=== PATIENT | male | born 1950 | race Caucasian/White ===

== ENCOUNTER → 2024-08-12 11:04 | Outpatient (CLI) | payer MEDICARE, SELFPAY | PROVIDERS: PCP Physician Assistant; Referring Provider Physician Assistant; Visit Provider Physician Assistant | DX: S81.802A Unspecified open wound, left lower leg, initial encounter (principal) | CPT/HCPCS: 87070; 87205 ==

== ENCOUNTER 2024-08-12 14:46 | Inpatient (IN) | payer MEDICARE, SELFPAY ==
[2024-08-12] VITALS (7 sets, daily range): BP systolic 124–145; BP diastolic 68–99; PULSE 72–115; RESP 14–18; TEMP 36–36.2; O2SAT 96–98; BMI 36.6
--- NOTE | 2024-08-12 15:49 | PC.NURSE ---
Pt reports long standing ulcerations all over lower extremities up to knees. bilateral lower legs are swollen, red, weeping serous fluid circumferentially. tips of toes are cyanotic, blanchable. toe nails appear fungal in nature. wounds on top of feet appear burned with skin sloughing. pt reports he soaks his feet and legs in salt and laundry detergent. advised to not soak feet in laundry detergent as it has chemicals and that could be why the skin is sloughing and his skin appears burned. multiple infected appears macerations and 2+ pitting edema.
--- NOTE | 2024-08-12 16:09 | ED_ITS ---
HPI - Wound/Laceration General Chief Complaint: Wound/Laceration Stated Complaint: wounds on both feet Time Seen by Provider: 08/12/24 15:05 Source: patient Mode of arrival: Wheelchair History of Present Illness HPI narrative: 74-year-old male with no reported past medical history presents for 2 weeks of redness and wounds on his lower extremities. He has been soaking his wounds 3 times daily in Epsom salt and organic laundry detergent. Has also been using an [id number] topical pain cream which has relieved his pain. He went to a clinic today on [facility] for antibiotics since the wounds are not healing and he was referred to the ER for evaluation. Over the last 3 days the wounds on his right leg have been weeping clear fluid Related Data Home Medications Medication Instructions Recorded Confirmed No Known Home Medications 08/12/24 08/12/24 Allergies Allergy/AdvReac Type Severity Reaction Status Date / Time codeine Allergy Intermediate Verified 08/12/24 14:53 Patient History Social History Smoking Status: Former smoker Smoking Status: Former smoker Exam Initial Vital Signs Initial Vital Signs: Vital Signs Temperature 97.0 F L 08/12/24 14:53 Pulse Rate 111 H 08/12/24 14:53 Respiratory Rate 14 08/12/24 14:53 Blood Pressure 140/99 H 08/12/24 14:53 Pulse Oximetry 98 08/12/24 14:53 Oxygen Delivery Method Room Air 08/12/24 14:53 Const: Awake, alert, no acute distress, appears chronically unwell Cardiac: tachycardia, regular rhythm RESP: unlabored, clear bilaterally, no wheezing GI: Soft, nontender, nondistended MSK: no deformity, full range of motion, pulses detected with doppler Skin: asymmetrical erythema BLE, L>R. Scattered excoriations. LLE with serous weeping from wounds. Toes appear purple, however sensation intact, skin blanches with cap refill <2 seconds in each digit Neuro: AO x3, CN II-XII grossly intact, moves all extremities Course Orders Ordered: ED Orders 08/12/24 15:24 CBC Auto Diff [Complete Blood Count AUTO DIFF] Stat CMP [Comprehensive Metabolic Panel] Stat CRP [C-Reactive Protein Quant] Stat Erythrocyte Sedimentation Rate Stat 08/12/24 16:47 Wound Culture and Gram Stain Stat 08/12/24 17:30 Blood Culture Stat Acetaminophen (Acetaminophen 325 Mg Tablet) 650 mg PO Q6H PRN PRN Reason: Fever/Mild Pain (1-3) Hydrocodone Bitart/Acetaminophen (Hydrocodone/Acet 5/325 Tablet) 2 tab PO Q4H PRN PRN Reason: Pain, Severe (7-10) Heparin Sodium (Porcine) (Heparin 5,000 Unit/Ml Vial) 5,000 unit SUBCUT BID TUSHAR Ceftriaxone Sodium 1,000 mg/ (Sodium Chloride) 100 mls @ 200 mls/hr IV Q24H TUSHAR Naloxone HCl (Naloxone 0.4 Mg/Ml Vial) 0.2 mg IV Q2MIN PRN PRN Reason: Opiate Reversal Ondansetron HCl (Ondansetron 4 Mg/2 Ml Inj) 4 mg IV Q8HR PRN PRN Reason: Nausea And Vomiting Discontinued Medications Ceftriaxone Sodium 2,000 mg/ (Sodium Chloride) 100 mls @ 200 mls/hr IV NOW ONE Stop: 08/12/24 16:10 Last Admin: 08/12/24 17:43 Dose: 200 mls/hr Documented By: SUSY Vancomycin HCl/Dextrose (Vancomycin) 2,000 mg in 400 mls @ 200 mls/hr IV NOW ONE Stop: 08/12/24 18:08 Vital Signs Vital signs: Vital Signs - 8 hr 08/12/24 14:53 08/12/24 15:27 08/12/24 15:30 Temperature 97.0 F L Pulse Rate 111 H 97 H Respiratory Rate 14 Blood Pressure 140/99 H 134/98 H Pulse Oximetry 98 96 Oxygen Delivery Method Room Air 08/12/24 15:30 08/12/24 15:59 Temperature Pulse Rate 74 Respiratory Rate Blood Pressure Pulse Oximetry 96 97 Oxygen Delivery Method MDM - Wound/Laceration Lab Data 08/12/24 15:24 08/12/24 15:24 Labs: Lab Results 08/12/24 Range/Units 15:24 WBC 8.9 (4.5-11.0) X10^3/uL RBC 4.99 (4.5-5.9) X10^6/uL Hgb 14.1 (13.5-17.5) g/dL Hct 44.2 (41-53) % MCV 88.4 (80-100) fL MCH 28.3 (26-34) PG MCHC 32.0 (30-36) % RDW 15.5 H (11.6-14.8) % Plt Count 196 (150-400) X10^3/uL Neut % (Auto) 84.7 H (50-75) % Lymph % (Auto) 6.8 L (25-40) % [place] % (Auto) 3.6 (3-14) % Eos % (Auto) 1.2 L (2-4) % Baso % (Auto) 3.7 H (0-2) % Neut # (Auto) 7500 H (1201-9897) /uL Lymph # (Auto) 600 L (1300-9054) /uL [place] # (Auto) 300 (0-900) /uL Eos # (Auto) 100 (0-450) /uL Baso # (Auto) 300 H (0-100) /uL ESR 8 (0-15) MM/HR Sodium 137 (137-145) mmol/L Potassium 4.1 (3.4-5.1) mmol/L Chloride 108 H (98-107) mmol/L Carbon Dioxide 21 L (22-32) mmol/L BUN 29 H (9-20) mg/dL Creatinine 1.28 H (0.66-1.25) mg/dL Estimated GFR 59 L (>60) mL/min BUN/Creatinine Ratio 22.7 H (6-22) Glucose 111 H (80-110) mg/dL Calcium 9.0 (8.4-10.2) mg/dL Total Bilirubin 0.9 (0.2-1.3) mg/dL AST 36 (17-59) IU/L ALT 24 (<50) IU/L Alkaline Phosphatase 66 (38-126) U/L Total Protein 7.0 (6.3-8.2) g/dL Albumin 3.7 (3.5-5.0) g/dL Globulin 3.3 (1.7-4.1) g/dL Albumin/Globulin Ratio 1.1 (1.0-2.8) MDM Narrative Medical decision making narrative: Two weeks of nonhealing bilateral lower extremity wounds, left greater than right. Patient has scattered excoriations and weeping wounds bilateral lower extremities. Some of patient's skin changes may be explained by the fact that he was soaking his legs in dishwashing detergent. He has extensive skin changes over his feet and toes. Notably his toes almost seemed to be purple in appearance, however they are nontender to palpation, he was able to wiggle his toes, the skin blanches with capillary refill less than 2 seconds bilaterally and in every digit. DP pulses dopplerable. Laboratory work is reviewed, no priors for comparison. Patient was received IV vancomycin and Rocephin. Blood cultures and wound culture sent to lab. Patient admitted for further treatment. Discharge Plan Departure Patient Disposition: Admitted As Inpatient Clinical Impression: Cellulitis of both lower extremities, Open wound of both legs with complication Admit Date/Time: 08/12/24 17:32 Admit Provider: Herrera Murphy
[2024-08-12 16:45] LABS: Add Manual Diff / Slide Review NO; Basophils Absolute Auto 300 /uL (0-100); Basophils Percent Auto 3.7 % (0-2); Eosinophils Absolute Auto 100 /uL (0-450); Eosinophils Percent Auto 1.2 % (2-4); Hematocrit 44.2 % (41-53); Hemoglobin 14.1 g/dL (13.5-17.5); Lymphocytes Absolute Auto 600 /uL (1100-4500); Lymphocytes Percent Auto 6.8 % (25-40); Mean Corpuscular Hemoglobin 28.3 PG (26-34); Mean Corpuscular Volume 88.4 fL (80-100); Monocytes Absolute Auto 300 /uL (0-900); Monocytes Percent Auto 3.6 % (3-14); Neutrophils Absolute Auto 7500 /uL (1500-7000); Neutrophils Percent Auto 84.7 % (50-75); Platelet Count 196 X10^3/uL (150-400); Red Blood Cell Count 4.99 X10^6/uL (4.5-5.9); Red Cell Distribution Width 15.5 % (11.6-14.8); White Blood Cell Count 8.9 X10^3/uL (4.5-11.0)
[2024-08-12 16:48] LABS: Alanine Aminotransferase 24 IU/L (<50); Albumin 3.7 g/dL (3.5-5.0); Albumin Globulin Ratio 1.1 (1.0-2.8); Alkaline Phosphatase 66 U/L (38-126); Aspartate Aminotransferase 36 IU/L (17-59); BUN Creatinine Ratio 22.7 (6-22); Bilirubin Total 0.9 mg/dL (0.2-1.3); Blood Urea Nitrogen 29 mg/dL (9-20); Carbon Dioxide 21 mmol/L (22-32); Chloride 108 mmol/L (98-107); Estimated Glomerular Filt Rate 59 mL/min (>60); Globulin 3.3 g/dL (1.7-4.1); Glucose 111 mg/dL (80-110); HEMOLYSIS 15 (0-50); Potassium 4.1 mmol/L (3.4-5.1); Sodium 137 mmol/L (137-145)
--- NOTE | 2024-08-12 17:06 | PC.NURSE ---
pulses dopplered due to pitting edema and wounds. doppler pulses present.
[2024-08-12] MEDS: cefTRIAXone 2,000 MG in SODIUM CHLORIDE 0.9% 100 ML 200 MG IV (17:43)
[2024-08-12 17:47] LABS: Erythrocyte Sedimentation Rate 8 MM/HR (0-15)
--- NOTE | 2024-08-12 17:59 | P.HP_ITS ---
History of Present Illness History of Present Illness Date Patient Seen: 08/12/24 Time Patient Seen: 18:00 Chief complaint: wounds on both feet Narrative: The patient was a 74-year-old male who denies a past medical history. He lives in [facility] and presents with 2 weeks of progressive redness and wounds in his lower legs. He has been soaking in his wounds 3 times a day and Epsom salts and organic laundry detergent. He was also tried a topical pain cream as well. He was seen in clinic today in [facility] and referred to the ED. Denies fevers, or chills, no nausea, or vomiting. He was no history of cellulitis, denies a history of MRSA. He was lived alone for 35 years, has 7 children. He notes that his hygiene is not what it could be. He does have his own place on [address]. He has been treating his own theories of cellulitis, gout, and foot fungus. He was no history of gout. He has been trying his remedies of salt soaking and laundry detergent for the last 2 weeks and ultimately decided to come for additional help. He denies a history of smoking, or drug use. He does use marijuana very occasionally. He denies any new traumas to the feet or cold or heat exposures. He was a protuberant abdomen and states that this is fairly normal for him. There is a question of some difficulty with urination but no clear history of urinary retention. He does not typically see doctors, or take any medications. [facility] Social History Smoking Status: Former smoker Meds Home Medications and Allergies Home Medications Medication Instructions Recorded Confirmed Type No Known Home Medications 08/12/24 08/12/24 History Allergies Allergy/AdvReac Type Severity Reaction Status Date / Time codeine Allergy Intermediate Verified 08/12/24 14:53 Review of Systems Review of Systems Narrative: All else reviewed and otherwise unremarkable except as noted in the history and physical. Exam Vital Signs (past 8 hours): - 08/12/24 14:53 08/12/24 15:27 08/12/24 15:30 Temperature 97.0 F L Pulse Rate 111 H 97 H Respiratory Rate 14 Blood Pressure 140/99 H 134/98 H Pulse Oximetry 98 96 Oxygen Delivery Method Room Air 08/12/24 15:30 Temperature Pulse Rate 74 Respiratory Rate Blood Pressure Pulse Oximetry 96 Oxygen Delivery Method Oxygen Delivery Method Room Air Narrative Exam Narrative: NAD, alert and oriented, fluent speech, calm. Normocephalic skull, EOMI, anicteric sclera, symmetric pupils. Oropharynx unremarkable, no droop. Neck supple, midline trachea, no adenopathy. Lungs clear, normal rate and effort. Heart regular, no murmur gallop or rub. Abdomen is soft, non distended and non tender. Extremities: Both legs are swollen and red, the left all the way up to just [id number] the right to just above the ankle. There was multiple excoriations and both anterior legs and the patient has multiple cracks in his swollen feet. All of his toes appear to be dusky but he did have Doppler foot pulses in the ED. The patient denies any history of venous insufficiency. He does have delayed cap refill to most of the toes on both feet. Skin is free of rash or lesions. Joints are not swollen or deformed. Judgment appears to be abnormal. Objective Labs 08/12/24 15:24 08/12/24 15:24 Labs: Laboratory Results - last 24 hr 08/12/24 15:24 WBC 8.9 RBC 4.99 Hgb 14.1 Hct 44.2 MCV 88.4 MCH 28.3 MCHC 32.0 RDW 15.5 H Plt Count 196 Neut % (Auto) 84.7 H Lymph % (Auto) 6.8 L [place] % (Auto) 3.6 Eos % (Auto) 1.2 L Baso % (Auto) 3.7 H Neut # (Auto) 7500 H Lymph # (Auto) 600 L [place] # (Auto) 300 Eos # (Auto) 100 Baso # (Auto) 300 H ESR 8 Sodium 137 Potassium 4.1 Chloride 108 H Carbon Dioxide 21 L BUN 29 H Creatinine 1.28 H Estimated GFR 59 L BUN/Creatinine Ratio 22.7 H Glucose 111 H Calcium 9.0 Total Bilirubin 0.9 AST 36 ALT 24 Alkaline Phosphatase 66 Total Protein 7.0 Albumin 3.7 Globulin 3.3 Albumin/Globulin Ratio 1.1 Assessment & Plan Assessment & Plan narrative: 1. Bilateral leg cellulitis, present on admission and active. 2. Possible venous and arterial insufficiency, present on admission and active. Plan: -IV ceftriaxone, Q 24 hours. -MRSA screen, if positive consider additional coverage. -leg arterial and venous studies. -monitor WBC -wound care consult -social insurance specialist consult Anticipate a 2 midnight stay for the severity of his leg cellulitis, supports inpatient status. Full resuscitation Time-Based Coding :: 35 min spent with patient and on the chart (including review of chart, obtaining history, exam, reviewing outside data, placing orders, documenting exam and treatment plan, and counseling patient) on 08/12. Quality MIPS - Admit I confirm the patient?s Advance Care Plan is present, Code status is documented, Surrogate decision maker is in patient?s record [If Yes, STOP here]: Yes MIPS - Meds 'Current medications' to include all prescriptions, [id number] products, herbals, cannabis/cannabidiol products, and vitamin/mineral/dietary (nutritional) supplements. I have utilized all available resources to obtain, update, or review the patient?s current medications. [If Yes, STOP here]: Yes
[2024-08-12] MEDS: VANCOMYCIN 2,000 MG/400 ML PIGGYBACK 200 MG IV (18:39)
[2024-08-12] MEDS: HYDROCODONE/ACET 5/325 TABLET 2 TAB PO (19:08)
--- NOTE | 2024-08-12 20:07 | PC.NURSE ---
Patient was brought up from Er to room 214, oriented to room and call light. VSS. Legs from knees down through feet have multiple open sores, erythemia, edema, weeping, with purlple blanchable toes. Dr. Murphy in to see patient and float RN in to admit patient. Patient conversant, cooperative at this time, but states he does not see medical care normally and takes care of his own problems. Call light and urinal placed within reach. Antibiotics infusing as ordered. This Rn unable to complete wound care due to end of shift, oncoming shift given report and will continue plan of care care. Patients legs are currently elevated on pillows open to air and disposable chucks pads underneath.
[2024-08-12 21:10] LABS: C-Reactive Protein Quant 1.8 mg/dL (<1.0)
[2024-08-12] MEDS: HEPARIN 5,000 UNIT/ML VIAL 5000 UNIT SUBCUT (21:22)
[2024-08-13 06:12] LABS: Add Manual Diff / Slide Review NO; Basophils Absolute Auto 100 /uL (0-100); Basophils Percent Auto 0.9 % (0-2); Eosinophils Absolute Auto 100 /uL (0-450); Eosinophils Percent Auto 0.6 % (2-4); Hematocrit 39.7 % (41-53); Hemoglobin 13.1 g/dL (13.5-17.5); Lymphocytes Absolute Auto 500 /uL (1100-4500); Lymphocytes Percent Auto 4.6 % (25-40); Mean Corpuscular Hemoglobin 28.7 PG (26-34); Mean Corpuscular Volume 87.1 fL (80-100); Monocytes Absolute Auto 800 /uL (0-900); Monocytes Percent Auto 7.7 % (3-14); Neutrophils Absolute Auto 9000 /uL (1500-7000); Neutrophils Percent Auto 86.2 % (50-75); Red Blood Cell Count 4.56 X10^6/uL (4.5-5.9); Red Cell Distribution Width 15.3 % (11.6-14.8); White Blood Cell Count 10.5 X10^3/uL (4.5-11.0)
[2024-08-13 06:20] LABS: BUN Creatinine Ratio 21.6 (6-22); Blood Urea Nitrogen 27 mg/dL (9-20); Calcium 8.8 mg/dL (8.4-10.2); Carbon Dioxide 20 mmol/L (22-32); Chloride 109 mmol/L (98-107); Estimated Glomerular Filt Rate > 60 mL/min (>60); Glucose 105 mg/dL (80-110); HEMOLYSIS < 15 (0-50); Potassium 4.4 mmol/L (3.4-5.1); Sodium 138 mmol/L (137-145)
--- NOTE | 2024-08-13 06:30 | DI.US.S_ITS ---
PROCEDURE: US PERIPH VENOUS LOW EXTREM BI INDICATIONS: EDEMA TECHNIQUE: Real-time imaging, as well as color and pulse Doppler interrogation, were performed of the deep veins of both legs from the inguinal ligament to the popliteal fossa, with documentation of the visualized calf veins. COMPARISON: None. FINDINGS: Diffuse nonspecific subcutaneous tissue edema is noted. No ultrasound evidence of deep vein thrombosis. The posterior tibial and peroneal veins are not evaluated due to soft tissue edema, per notes. Right: The common femoral, femoral, popliteal are normally compressible, and free of intraluminal thrombus. Color and pulse Doppler demonstrate normal phasic intravascular flow. There is normal augmentation response to distal compression maneuver. Left: The common femoral, femoral, popliteal are normally compressible, and free of intraluminal thrombus. Color and pulse Doppler demonstrate normal phasic intravascular flow. There is normal augmentation response to distal compression maneuver. IMPRESSION: Bilateral diffuse nonspecific subcutaneous edema. No ultrasound evidence of of deep venous thrombosis in the bilateral lower extremities. Dictated by: Santino Ramirez M.D. on 08/13/2024 at 7:34 Approved by: Santino Ramirez M.D. on 08/13/2024 at 7:45
[2024-08-13 06:34] LABS: Platelet Count 167 X10^3/uL (150-400)
[2024-08-13] MEDS: HYDROCODONE/ACET 5/325 TABLET 2 TAB PO ×2 (06:56→12:44)
[2024-08-13 07:00] VITALS: BP 123/83; PULSE 78; RESP 16; TEMP 36.6; O2SAT 93
--- NOTE | 2024-08-13 09:00 | DI.US.S_ITS ---
PROCEDURE: US ARTERIAL DUPLEX LE BI INDICATIONS: EDEMA, CELLULITIS TECHNIQUE: Color and pulse Doppler interrogation was performed of both lower extremity arterial systems, with image documentation. COMPARISON: None. FINDINGS: Right lower extremity: Common femoral artery: 59.1 cm/sec, with triphasic flow. Deep femoral artery: 26.7 cm/sec, with biphasic flow. Proximal superficial femoral artery: 74.5 cm/sec, with triphasic flow. Mid superficial femoral artery: 50.9 cm/sec, with triphasic flow. Distal superficial femoral artery: 44.8 cm/sec, with triphasic flow. Popliteal artery: 34.9 cm/sec, with biphasic flow. Posterior tibial artery: 42.9 cm/sec, with biphasic flow. Anterior tibial artery / dorsalis pedis: 41 cm/sec, with biphasic flow. Mcclain-scale imaging description: No definite atherosclerotic disease is seen. Left lower extremity: Common femoral artery: 30.6 cm/sec, with triphasic flow. Deep femoral artery: 24.5 cm/sec, with biphasic flow. Proximal superficial femoral artery: 51.4 cm/sec, with triphasic flow. Mid superficial femoral artery: 64.2 cm/sec, with triphasic flow. Distal superficial femoral artery: 49.4 cm/sec, with triphasic flow. Popliteal artery: 42.2 cm/sec, with biphasic flow. Posterior tibial artery: 80.9 cm/sec, with biphasic flow. Anterior tibial artery / dorsalis pedis: 68.4 cm/sec, with biphasic flow. Mcclain-scale imaging description: No definite atherosclerotic disease is seen. IMPRESSION: 1. Decreased peak systolic velocities are seen in the bilateral femoral and popliteal arteries, which may be related to cardiac disease. 2. Elevated peak systolic velocity within the left tibial arteries, consistent with 1-19% stenosis. Dictated by: Bertin Marshall M.D. on 08/13/2024 at 11:00 Approved by: Bertin Marshall M.D. on 08/13/2024 at 11:06
[2024-08-13] MEDS: HEPARIN 5,000 UNIT/ML VIAL 5000 UNIT SUBCUT (09:52)
[2024-08-13] MEDS: SODIUM CHLORIDE 0.9% FLUSH 10 ML IV (09:53)
--- NOTE | 2024-08-13 12:35 | CM.DANOTE ---
Initial DCP Assessment Visit Note Reviewed EMR and team rounds for status updates. Met with pt at bedside to introduce self and role, pt was found to be resting quietly in bed, was easily able to waken and was able to provide psychosocial background info for this visit. Pt resides alone in his own home on [facility]. He states that he has lived alone for the last 35-years, has 7-children that are not immediately involved, and [place] help if he needs it. Pt shared that he plans on driving himself home, and is not open to any in-home assistance at d/c. Payor: Self Pay PCP: Maribell Duran Pt is a 74 year-old M who presented to the ED last evening with c/o 2-weeks of worsening redness and multiple wounds on his lower legs from his knees down to his feet. He shared that he has been soaking his legs in epsom salts and laundry detergent for the last 2-weeks since it started, however they were not improving. He went to see his PCP at the [facility] in hope of getting antibiotics, however his PCP instead directed him to go to the ED for further evaluation/tx. He was dx with cellulitis in the ED, was started on IV antibiotics and admitted for further tx and wound care. DCP will continue to monitor for any further evolving needs and recommendations for assistance at d/c. Discharge Planning/Care Management CM Discharge Assessment Start: 08/13/24 12:14 Freq: Status: Active Protocol: Document 08/13/24 12:32 DPL (Rec: 08/13/24 12:34 DPL [id number]) Discharge Planning Assessment Assigned Commercial Producer ELIZA Dillon Advance Directives? No History Provided By Patient,Medical Record Has Patient been admitted in last 30 No days? Prior Living Arrangements House Household Members none Type of transporation used prior to Drives own vehicle admit Independent with ADL's Yes Is patient alert and oriented? Yes Comment N/A Caregiver for Another No Comment None identified at this time. Comment Pt has already expressed that he would not be needing any assistance for home d/c. He plans to f/u with his PCP at the [facility]. Barriers to Discharge No Discharge Plan Home Transportation Arrangement Self, he drove himself to the ED. Referrals Initiated None needed Whiteboard Updated in Patient Room with Yes name and ext. # of Commercial Producer Review Status In Process Please Provide Date Initial DC 08/13/24 Assessment Was Performed
[2024-08-13] MEDS: cefTRIAXone 1,000 MG in SODIUM CHLORIDE 0.9% 100 ML 200 MG IV (15:37)
--- NOTE | 2024-08-13 17:20 | PM.PN.1 ---
Subjective Subjective Interval history: 74 M admitted with bilateral cellulitis, improved today but still weak and painful with ambulation. Exam Vital Signs (past 8 hours): Oxygen Delivery Method Room Air Oxygen Flow Rate 0 Narrative Exam Narrative: NAD, alert and oriented, fluent speech, calm. Normocephalic skull, EOMI, anicteric sclera, symmetric pupils. Oropharynx unremarkable, no droop. Neck supple, midline trachea, no adenopathy. Lungs clear, normal rate and effort. Heart regular, no murmur gallop or rub. Abdomen is soft, non distended and non tender. Extremities: Both legs are swollen and red, the left all the way up to just [id number] the right to just above the ankle. There was multiple excoriations and both anterior legs and the patient has multiple cracks in his swollen feet. Joints are not swollen or deformed. Judgment appears to be abnormal. Objective Labs 08/13/24 05:20 08/13/24 05:20 Labs: Laboratory Results - last 24 hr 08/12/24 08/13/24 15:24 05:20 WBC 10.5 RBC 4.56 Hgb 13.1 L Hct 39.7 L MCV 87.1 MCH 28.7 MCHC 33.0 RDW 15.3 H Plt Count 167 Neut % (Auto) 86.2 H Lymph % (Auto) 4.6 L [place] % (Auto) 7.7 Eos % (Auto) 0.6 L Baso % (Auto) 0.9 Neut # (Auto) 9000 H Lymph # (Auto) 500 L [place] # (Auto) 800 Eos # (Auto) 100 Baso # (Auto) 100 ESR 8 Sodium 138 Potassium 4.4 Chloride 109 H Carbon Dioxide 20 L BUN 27 H Creatinine 1.25 Estimated GFR > 60 BUN/Creatinine Ratio 21.6 Glucose 105 Calcium 8.8 C-Reactive Protein 1.8 H PFSH Social History household members: none Smoking Status: Former smoker alcohol intake: current Assessment & Plan Assessment & Plan narrative: 1. Bilateral leg cellulitis, present on admission and active. Plan: -IV ceftriaxone, 1g Q 24 hours -leg arterial and venous studies. Venous was negative for DVT. Arterial studies without any peripheral stenosis. -will have patient ambulate with therapies -continue pain control as needed. -CBC and CMP are stable and without significant abnormality today. -MRSA swab ordered today, add vanco if positive. -wound culture pending, with gram positive and gram negative bacteria. Dispo: Inpatient, possible discharge home vs SNF pending evaluation by PT, likely ready medically in 1-2 days Full resuscitation Time-Based Coding :: [TOTAL MINUTES] spent with patient and on the chart (including review of chart, obtaining history, exam, reviewing outside data, placing orders, documenting exam and treatment plan, and counseling patient) on [DATE].
[2024-08-13 19:00] VITALS: BP 124/95; PULSE 98; RESP 18; TEMP 35.6; O2SAT 92
[2024-08-14 01:48] LABS: MRSA (Nasal) PCR NOT DETECTED (Not Detect)
--- NOTE | 2024-08-14 06:44 | PC.NURSE ---
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 Pt does not feel it would be safe for him to get dicharged to home due to his feet not improving and his pain is greatly increased when attempting to bear weight while walking.RN reassured that the Dr would not discharge until he would be medically cleared/safe to discharge. Pt verbalized understanding and did not have any further questions.
[2024-08-14 07:00] VITALS: BP 134/90; PULSE 98; RESP 22; TEMP 36.6; O2SAT 98
[2024-08-14] MEDS: HEPARIN 5,000 UNIT/ML VIAL 5000 UNIT SUBCUT ×2 (08:35→20:37)
[2024-08-14] MEDS: SODIUM CHLORIDE 0.9% FLUSH 10 ML IV ×2 (08:35→20:37)
[2024-08-14 08:44] LABS: Add Manual Diff / Slide Review NO; Basophils Absolute Auto 100 /uL (0-100); Basophils Percent Auto 1.1 % (0-2); Eosinophils Absolute Auto 100 /uL (0-450); Hemoglobin 13.2 g/dL (13.5-17.5); Lymphocytes Absolute Auto 700 /uL (1100-4500); Lymphocytes Percent Auto 9.7 % (25-40); Mean Corpuscular HGB Conc 32.2 % (30-36); Mean Corpuscular Hemoglobin 28.1 PG (26-34); Mean Corpuscular Volume 87.5 fL (80-100); Monocytes Absolute Auto 700 /uL (0-900); Monocytes Percent Auto 9.7 % (3-14); Neutrophils Absolute Auto 5500 /uL (1500-7000); Neutrophils Percent Auto 77.5 % (50-75); Platelet Count 196 X10^3/uL (150-400); Red Blood Cell Count 4.69 X10^6/uL (4.5-5.9); Red Cell Distribution Width 15.5 % (11.6-14.8); White Blood Cell Count 7.1 X10^3/uL (4.5-11.0)
[2024-08-14 09:14] LABS: BUN Creatinine Ratio 23.9 (6-22); Blood Urea Nitrogen 28 mg/dL (9-20); Calcium 8.7 mg/dL (8.4-10.2); Carbon Dioxide 23 mmol/L (22-32); Chloride 106 mmol/L (98-107); Estimated Glomerular Filt Rate > 60 mL/min (>60); Glucose 96 mg/dL (80-110); HEMOLYSIS < 15 (0-50); Potassium 4.4 mmol/L (3.4-5.1); Sodium 135 mmol/L (137-145)
--- NOTE | 2024-08-14 10:44 | CM.DPC ---
DCP Cont. Reviewed EMR and team rounds for status updates. Pt's wound was bleeding this am while working with PT. Per Hospitalist, he is ordering wound care and pt's wounds will be wrapped in order to be able to work with therapies. Likely 1-2 more days before stable for d/c home.
--- NOTE | 2024-08-14 11:04 | PT.IIE ---
Current Diagnoses Cellulitis of right lower limb (08/12/24) Physical Therapy Inpatient Evaluation/Re-Eval M1 PT/OT-IP Prior Functional Status Start: 08/14/24 08:04 Freq: NEEDED Status: Active Protocol: Document 08/14/24 09:13 MB (Rec: 08/14/24 11:03 MB [id number]) Medical Review Prior Functional Status Medical History Reviewed Yes Communication Unsure baseline diet and pt is able to communicate needs Mobility and Gait Pt reports he only mobilized as needed and was mostly sedentary. He soaked his feet until they were pink each morning. Pt reports no indoor tub or shower and he could bathe if he heated up water on the stove. Activities of Daily Living and IADL's Pt states he drove into town occ Social History Household Members none Living Arrangements House Number of Stairs To Enter/Railing? It is unclear what the home set-up is. Pt states he does not have AD, unclear about steps on eval Home Environment Standard Height Toilet Additional Social History Comment Not working and pt states he sleeps in a flat bed M2 PT-IP Current Condition Start: 08/14/24 08:04 Freq: NEEDED Status: Active Protocol: Document 08/14/24 09:13 MB (Rec: 08/14/24 11:03 MB [id number]) Physical Therapy Current Condition Current Condition Evaluation Date 08/14/24 Treatment Diagnosis B LE cellulitis M3 PT-IP Subjective Start: 08/14/24 08:04 Freq: NEEDED Status: Active Protocol: Document 08/14/24 09:13 MB (Rec: 08/14/24 11:03 MB [id number]) Subjective Physical Therapy Visit Type Type Initial Evaluation Visit Start Time 09:13 Visit Stop Time 09:30 Number of DINKEY MECHANIC Visits 0 Physical Therapy Visit Comments Patient Comments Pt is somewhat apprehensive about d/c. He reports he has some stuff going on at home but he does not state more about this with PT. He does not appear to have good awareness about self-care, wound care or mobility. Therapy Pain Assessment Pain When Pain Assessed During Mobility Pain Present Pain Present Pain Reported Location bilateral feet Intensity 9 Scale Used Numeric (0 - 10) M4 PT-IP Mobility and Gait Start: 08/14/24 08:04 Freq: NEEDED Status: Active Protocol: Document 08/14/24 09:13 MB (Rec: 08/14/24 11:03 [id number]) PT-Bed Mobility Assessment Rolling Level of Assist Standby Assistance,1 Person Assistance Supine to Sit Supine to Sit Standby Assistance,1 Person Assistance,Head of Bed Elevated,Bedrails Sit to Supine Sit to Supine Standby Assistance,1 Person Assistance,Head of Bed Elevated,Bedrails Scooting Scooting to Edge of Bed Standby Assistance PT-Transfer Assessment Comments Mobility Comments Since legs not dressed and socks cannot be donned safely without damaging remaining skin integrity, PT places clean bed pad on floor to try to stand and walker nearby, gait belt and assistance. Pt cannot stand full upright and his left anterior ankle spurts out blood with attempted WB through foot and pain is 9/10 and so returned to supine Gait Assessment Comments Gait Comments Not appropriate given pain and no dressings on legs PT-Balance Assessment Sitting Balance and Reactions Static Sitting Balance Ability Good Dynamic Sitting Balance Ability Fair Standing Balance and Reactions Static Standing Balance Ability Poor Dynamic Standing Balance Ability Poor M5 PT-IP Objective Assessments Start: 08/14/24 08:04 Freq: NEEDED Status: Active Protocol: Document 08/14/24 09:13 MB (Rec: 08/14/24 11:03 [id number]) Orientation Orientation/Cognition Level of Alertness Alert Orientation Name,Age,Birthday,Month,Year, Day of Week,Place,Situation Language Function Ability No Deficits Noted Safety Awareness Decreased Safety Awareness Comments Pt answers most questions but does not relay what is concerning him about home Gross Range of Motion Upper Extremity ROM Assessment Within Functional Limits Lower Extremity ROM Assessment Bilaterally Impaired Strength Comments Strength Comments No formal ROM or MMT LEs given skin issues/cellulitis, bleeding today Coordination Assessment Gross Coordination Gross Coordination Impaired Assessment Coordination Comments Moves legs together and in gross movements d/t pain, edema, and skin breakdown Sensation Assessment Comments Sensation Comments NT M6 PT-IP Treatment Start: 08/14/24 08:04 Freq: NEEDED Status: Active Protocol: Document 08/14/24 09:13 MB (Rec: 08/14/24 11:03 [id number]) Physical Therapy Treatment Education Education Provided Safety M7 PT-IP Assessment and Plan Start: 08/14/24 08:04 Freq: NEEDED Status: Active Protocol: Document 08/14/24 09:13 MB (Rec: 08/14/24 11:03 [id number]) PT Summary Assessment and Plan Potential Rehabilitation Potential Fair Status of Condition at Evaluation Unstable Summary Impairments Pain,ROM,Strength,Balance, Coordination,Sensation,Bed Mobility,Transfers,Gait, Activity Tolerance Progress Towards Goals Slow Progress due to Pain,Slow Progress - Other Assessment Summary Pt is a 74 y/o male presenting with B LE cellulitis. His legs are not dressed in bed and they have many areas of skin breakdown, erythema and edema. Pt has no pain with legs elevated in bed and pain increases to 9/10 with resting feet on floor and he has blood spurting out of anterior left ankle with attempted STS . He has imbalance, pain and weakness and he asks to stop PT. PT cannot don hospital socks for safety d/t poor skin integrity. LEs will need to be dressed before he can wear shoes or socks or mobilize well with PT given risk of infection, fall risk, further skin breakdown and overall biohazard safety for hospital and staff. Pt does not appear to have support at home on [place] and medical access is limited. He does not appear to have good insight to skin care, hygiene or wound care management and he does not have access to shower or tub in the home. He may be more appropriate for SNF at d/c for skilled therapies and nsg wound care. Goals Bed Mobility Goal Independent Transfer Goal Standby Assistance,Front Wheeled Walker Gait Goal Standby Assistance,Front Wheel Walker Gait Distance 100 Other Goals Pt pt ends up having steps at home, will have a goal to ascend and descend steps with appropriate rail and LRAD with mod I. Days to Meet Goals 10 Frequency of Treatment Frequency Of Treatment Once a Day Treatment Plan Physical Therapy Treatment Plan Bed Mobility Training,Transfer Training,Gait Training, Therapeutic Exercise,Balance Retraining,Discharge Planning Weight Bearing Status Allowed Weight Bearing Amount (enter % No limitations in chart or #) (%) Recommendations To Nursing Amount of Assist Needed Mechanical Lift Discharge Recommendations PT Discharge Recommendations SNF Rehab Transportation Needs at Discharge Wheelchair/Cabulance
[2024-08-14] MEDS: HYDROCODONE/ACET 5/325 TABLET 2 TAB PO ×2 (11:19→20:48)
--- NOTE | 2024-08-14 12:31 | PM.PN.1 ---
Subjective Subjective Interval history: 74 M admitted with bilateral cellulitis, improved today but still weak and painful with ambulation. He got up with PT, but had significant oozing from his leg wounds and he was recommended for SNF. Wound care consultation ordered. Exam Vital Signs (past 8 hours): - 08/14/24 07:00 Temperature 97.8 F Pulse Rate 98 H Respiratory Rate 22 Blood Pressure 134/90 Pulse Oximetry 98 Oxygen Flow Rate 0 Oxygen Delivery Method Room Air Oxygen Flow Rate 0 Narrative Exam Narrative: NAD, alert and oriented, fluent speech, calm. Normocephalic skull, EOMI, anicteric sclera, symmetric pupils. Oropharynx unremarkable, no droop. Neck supple, midline trachea, no adenopathy. Lungs clear, normal rate and effort. Heart regular, no murmur gallop or rub. Abdomen is soft, non distended and non tender. Extremities: Both legs are swollen and red, the left all the way up to just [id number] the right to just above the ankle. There was multiple excoriations and both anterior legs and the patient has multiple cracks in his swollen feet. Joints are not swollen or deformed. Judgment appears to be abnormal. Objective Labs 08/14/24 08:17 08/14/24 08:17 Labs: Laboratory Results - last 24 hr 08/14/24 08/14/24 00:16 08:17 WBC 7.1 RBC 4.69 Hgb 13.2 L Hct 41.0 MCV 87.5 MCH 28.1 MCHC 32.2 RDW 15.5 H Plt Count 196 Neut % (Auto) 77.5 H Lymph % (Auto) 9.7 L [place] % (Auto) 9.7 Eos % (Auto) 2.0 Baso % (Auto) 1.1 Neut # (Auto) 5500 Lymph # (Auto) 700 L [place] # (Auto) 700 Eos # (Auto) 100 Baso # (Auto) 100 Sodium 135 L Potassium 4.4 Chloride 106 Carbon Dioxide 23 BUN 28 H Creatinine 1.17 Estimated GFR > 60 BUN/Creatinine Ratio 23.9 H Glucose 96 Calcium 8.7 Nasal Screen MRSA (PCR) Not detected PFSH Social History household members: none Smoking Status: Former smoker alcohol intake: current Assessment & Plan Assessment & Plan narrative: 1. Bilateral leg cellulitis, present on admission and active. Plan: -IV ceftriaxone, 1g Q 24 hours -leg arterial and venous studies. Venous was negative for DVT. Arterial studies without any peripheral stenosis. -will have patient ambulate with therapies, recommend for SNF at this time, ordered wound care consultation for recommendations on dressings needed for ambulation. -continue pain control as needed. -CBC and CMP are stable and without significant abnormality today. -MRSA swab negative, no vancomycin needed. -wound culture pending, with 3 different gram negative rods, pending speciation and sensitivities. Dispo: Inpatient, possible discharge home vs SNF pending repeat evaluations by PT, likely ready medically in 2-3 days Full resuscitation Additional history obtained via discussions with the high risk case manager, bedside RN, and physical therapist. These discussions contributed to the creation of the above assessment and plan. I have reviewed patient's presenting documentation, labs, and imaging personally. Time-Based Coding :: [TOTAL MINUTES] spent with patient and on the chart (including review of chart, obtaining history, exam, reviewing outside data, placing orders, documenting exam and treatment plan, and counseling patient) on [DATE].
--- NOTE | 2024-08-14 12:57 | PM.CN ---
History of Present Illness Consult details Date Patient Seen: 08/14/24 Time Patient Seen: 12:30 Chief complaint: wounds on both feet Narrative: The patient is a 74-year-old male who was admitted to the hospital August 12, 2024 with cellulitis and open wounds of both lower extremities. The patient reports that both legs became acutely swollen and erythematous about 2 weeks ago. He then developed open wounds that were draining purulent fluid. Symptoms were proceeded by a chest cold. The patient has been treating his legs by soaking them in Epson salts and detergent several times a day however his symptoms continue to worsen. He was seen at the [facility] and referred to the hospital for further evaluation and treatment. The patient reports that the open wounds are very painful. Since admission to the hospital he has been treated with IV antibiotics and the redness and swelling on both lower extremities has improved. He denies having any fever or chills. The patient has never had any similar problems in the past. He has no prior history of any vein disorders or DVT. Arterial Doppler showed no significant PAD. The patient has no prior history of diabetes. Meds Home Medications and Allergies Home Medications Medication Instructions Recorded Confirmed Type No Known Home Medications 08/12/24 08/12/24 History Allergies Allergy/AdvReac Type Severity Reaction Status Date / Time codeine Allergy Intermediate Verified 08/12/24 14:53 Review of Systems Respiratory Comments: Shortness of breath with exertion Exam Vital Signs (past 8 hours): - 08/14/24 07:00 Temperature 97.8 F Pulse Rate 98 H Respiratory Rate 22 Blood Pressure 134/90 Pulse Oximetry 98 Oxygen Flow Rate 0 Oxygen Delivery Method Room Air Oxygen Flow Rate 0 Const Other: Well-developed well-nourished male who is alert and oriented and in no apparent distress Skin Other: Erythema both lower extremities, scattered full-thickness ulcers on both lower extremities and both feet with some purulent fluid Extrem Other: Pitting edema Objective Labs 08/14/24 08:17 08/14/24 08:17 Labs: Laboratory Results - last 24 hr 08/14/24 08/14/24 00:16 08:17 WBC 7.1 RBC 4.69 Hgb 13.2 L Hct 41.0 MCV 87.5 MCH 28.1 MCHC 32.2 RDW 15.5 H Plt Count 196 Neut % (Auto) 77.5 H Lymph % (Auto) 9.7 L [place] % (Auto) 9.7 Eos % (Auto) 2.0 Baso % (Auto) 1.1 Neut # (Auto) 5500 Lymph # (Auto) 700 L [place] # (Auto) 700 Eos # (Auto) 100 Baso # (Auto) 100 Sodium 135 L Potassium 4.4 Chloride 106 Carbon Dioxide 23 BUN 28 H Creatinine 1.17 Estimated GFR > 60 BUN/Creatinine Ratio 23.9 H Glucose 96 Calcium 8.7 Nasal Screen MRSA (PCR) Not detected PFSH Social History household members: none Tobacco & Substance Use Smoking Status: Former smoker alcohol intake: current Assessment & Plan Assessment and plan (1) Cellulitis of both lower extremities: Status: Acute (2) Non-pressure chronic ulcer of other part of right lower leg with fat layer exposed: Status: Acute (3) Non-pressure chronic ulcer of other part of left lower leg with fat layer exposed: Status: Acute (4) Non-pressure chronic ulcer of other part of right foot with fat layer exposed: Status: Acute (5) Non-pressure chronic ulcer of other part of left foot with fat layer exposed: Status: Acute (6) Localized edema: Status: Acute Assessment & Plan narrative: The patient has multiple scattered full-thickness ulcers on both lower extremities and both feet associated with edema and cellulitis. Recommend continuing IV antibiotic therapy, start daily dressing changes with Iodosorb, keep legs elevated, use Tubigrip for compression, follow up at wound center after discharge. Consider diuretic therapy to help reduce lower extremity edema, echocardiogram to assess cardiac function. Time-Based Coding :: [40 MINUTES] spent with patient and on the chart (including review of chart, obtaining history, exam, reviewing outside data, placing orders, documenting exam and treatment plan, and counseling patient) on [08/14/24].
[2024-08-14] MEDS: cefTRIAXone 1,000 MG in SODIUM CHLORIDE 0.9% 100 ML 200 MG IV (15:50)
[2024-08-14 19:00] VITALS: BP 111/74; PULSE 103; RESP 20; TEMP 36.4; O2SAT 94
[2024-08-15 05:44] LABS: Add Manual Diff / Slide Review NO; Basophils Absolute Auto 0 /uL (0-100); Basophils Percent Auto 0.5 % (0-2); Eosinophils Absolute Auto 200 /uL (0-450); Eosinophils Percent Auto 2.3 % (2-4); Hemoglobin 13.4 g/dL (13.5-17.5); Lymphocytes Absolute Auto 700 /uL (1100-4500); Lymphocytes Percent Auto 9.7 % (25-40); Mean Corpuscular HGB Conc 32.7 % (30-36); Mean Corpuscular Hemoglobin 28.5 PG (26-34); Mean Corpuscular Volume 87.1 fL (80-100); Monocytes Absolute Auto 600 /uL (0-900); Monocytes Percent Auto 8.3 % (3-14); Neutrophils Absolute Auto 5400 /uL (1500-7000); Neutrophils Percent Auto 79.2 % (50-75); Platelet Count 190 X10^3/uL (150-400); Red Blood Cell Count 4.71 X10^6/uL (4.5-5.9); Red Cell Distribution Width 15.2 % (11.6-14.8); White Blood Cell Count 6.8 X10^3/uL (4.5-11.0)
[2024-08-15 05:58] LABS: BUN Creatinine Ratio 26.7 (6-22); Blood Urea Nitrogen 24 mg/dL (9-20); Calcium 8.8 mg/dL (8.4-10.2); Carbon Dioxide 23 mmol/L (22-32); Chloride 107 mmol/L (98-107); Estimated Glomerular Filt Rate > 60 mL/min (>60); Glucose 131 mg/dL (80-110); HEMOLYSIS < 15 (0-50); Potassium 4.2 mmol/L (3.4-5.1); Sodium 136 mmol/L (137-145)
[2024-08-15] MEDS: HYDROCODONE/ACET 5/325 TABLET 2 TAB PO ×2 (06:03→20:21)
[2024-08-15 08:00] VITALS: BP 115/83; PULSE 100; RESP 18; TEMP 35.9; O2SAT 93
[2024-08-15] MEDS: HEPARIN 5,000 UNIT/ML VIAL 5000 UNIT SUBCUT ×2 (08:42→20:22)
[2024-08-15] MEDS: SODIUM CHLORIDE 0.9% FLUSH 10 ML IV ×2 (08:42→20:22)
--- NOTE | 2024-08-15 11:05 | PT.IPTN ---
Current Diagnoses Cellulitis of right lower limb (08/12/24) Cellulitis of left lower limb (08/12/24) Non-pressure chronic ulcer of other part of right foot with fat layer exposed (08/12/24) Non-pressure chronic ulcer of other part of left foot with fat layer exposed (08/12/24) Non-pressure chronic ulcer of other part of right lower leg with fat layer exposed (08/12/24) Non-pressure chronic ulcer of other part of left lower leg with fat layer exposed (08/12/24) Localized edema (08/12/24) Physical Therapy Treatment Note M2 PT-IP Current Condition Start: 08/14/24 08:04 Freq: NEEDED Status: Active Protocol: Document 08/14/24 09:13 MB (Rec: 08/14/24 11:03 MB [id number]) Physical Therapy Current Condition Current Condition Evaluation Date 08/14/24 Treatment Diagnosis B LE cellulitis M3 PT-IP Subjective Start: 08/14/24 08:04 Freq: NEEDED Status: Active Protocol: Document 08/15/24 12:07 TS (Rec: 08/15/24 12:36 TS [id number]) Subjective Physical Therapy Visit Type Type Treatment Note Visit Start Time 11:05 Visit Stop Time 11:28 Number of RAT BREEDER Visits 1 Physical Therapy Visit Comments Patient Comments Pt found resting in bed, he is agreeable to PT. Therapy Pain Assessment Pain When Pain Assessed During Mobility Pain Present Pain Present Pain Reported M4 PT-IP Mobility and Gait Start: 08/14/24 08:04 Freq: NEEDED Status: Active Protocol: Document 08/15/24 12:07 TS (Rec: 08/15/24 12:36 TS [id number]) PT-Bed Mobility Assessment Rolling Level of Assist Standby Assistance,1 Person Assistance Supine to Sit Supine to Sit Standby Assistance,1 Person Assistance,Head of Bed Elevated,Bedrails Sit to Supine Sit to Supine Standby Assistance,1 Person Assistance,Head of Bed Elevated,Bedrails Scooting Scooting to Edge of Bed Standby Assistance PT-Transfer Assessment Sit to and From Stand Sit to and from Stand Standby Assistance Equipment Transfer Assistive Device Front Wheeled Walker Comments Mobility Comments Supine to sit SBA from flat bed. STS with FWW SBA, pt slightly unsteady on feet. He ambulates with an antalgic gait back on heels ~30' in the room SBA. Pt requests to use the toilet. STS from the toilet SBA. Pt ambulates back to the bed SBA. Sit to supine into bed SBA. Pt was left in the bed, all needs met. Gait Assessment Gait Gait Assistance Required: Standby Assistance Distance (Feet) 30 Assistive Devices Assistive Device Gait Belt,Front Wheeled Walker Gait Deviations General Gait Pattern Antalgic,Decreased Stride Length,Decreased Feet Clearance,Wide Based Gait Factors Limiting Gait Function Factors Limiting Gait Function Pain,Poor Balance,Poor Safety Awareness PT-Balance Assessment Sitting Balance and Reactions Static Sitting Balance Ability Good Dynamic Sitting Balance Ability Fair Standing Balance and Reactions Static Standing Balance Ability Fair Dynamic Standing Balance Ability Fair Device Used FWW M5 PT-IP Objective Assessments Start: 08/14/24 08:04 Freq: NEEDED Status: Active Protocol: Document 08/14/24 09:13 MB (Rec: 08/14/24 11:03 MB [id number]) Orientation Orientation/Cognition Level of Alertness Alert Orientation Name,Age,Birthday,Month,Year, Day of Week,Place,Situation Language Function Ability No Deficits Noted Safety Awareness Decreased Safety Awareness Comments Pt answers most questions but does not relay what is concerning him about home Gross Range of Motion Upper Extremity ROM Assessment Within Functional Limits Lower Extremity ROM Assessment Bilaterally Impaired Strength Comments Strength Comments No formal ROM or MMT LEs given skin issues/cellulitis, bleeding today Coordination Assessment Gross Coordination Gross Coordination Impaired Assessment Coordination Comments Moves legs together and in gross movements d/t pain, edema, and skin breakdown Sensation Assessment Comments Sensation Comments NT M6 PT-IP Treatment Start: 08/14/24 08:04 Freq: NEEDED Status: Active Protocol: Document 08/15/24 12:07 TS (Rec: 08/15/24 12:36 [id number]) Physical Therapy Treatment Education Education Provided Safety M7 PT-IP Assessment and Plan Start: 08/14/24 08:04 Freq: NEEDED Status: Active Protocol: Document 08/15/24 12:07 TS (Rec: 08/15/24 12:36 [id number]) PT Summary Assessment and Plan Potential Rehabilitation Potential Fair Summary Impairments Pain,ROM,Strength,Balance, Coordination,Sensation,Bed Mobility,Transfers,Gait, Activity Tolerance Progress Towards Goals Slow Progress due to Pain Assessment Summary Pt is making some progress with his mobility but he is limited by pain. He is SBA for all bed mobility. He ambulates in the room ~30'SBA with FWW. Pt is slightly unsteady with ambulation. He does not have any stairs into home. PT is currently recommending home vs SNF. Pt may require assistance at home for mobility, ADL's and safety. Recommending OT evaluation. Pt currently does not have anyone to assist him at home. He would benefit from SNF at this time. Goals Bed Mobility Goal Independent Transfer Goal Standby Assistance,Front Wheeled Walker Gait Goal Standby Assistance,Front Wheel Walker Gait Distance 100 Other Goals Pt pt ends up having steps at home, will have a goal to ascend and descend steps with appropriate rail and LRAD with mod I. Days to Meet Goals 10 Frequency of Treatment Frequency Of Treatment Once a Day Treatment Plan Physical Therapy Treatment Plan Bed Mobility Training,Transfer Training,Gait Training, Therapeutic Exercise,Balance Retraining,Discharge Planning Weight Bearing Status Allowed Weight Bearing Amount (enter % No limitations in chart or #) (%) Recommendations To Nursing Amount of Assist Needed 2 Person Assist Discharge Recommendations PT Discharge Recommendations SNF Rehab Transportation Needs at Discharge Wheelchair/Cabulance
--- NOTE | 2024-08-15 12:46 | PM.PN.1 ---
Subjective Subjective Interval history: 74 M admitted with bilateral cellulitis, improved today but still weak and painful with ambulation though he felt a bit better today / this afternoon. Wounds now dressed after wound care consultation yesterday. Exam Vital Signs (past 8 hours): - 08/15/24 08:00 Temperature 96.6 F L Pulse Rate 100 H Respiratory Rate 18 Blood Pressure 115/83 Pulse Oximetry 93 Oxygen Flow Rate 0 Oxygen Delivery Method Room Air Oxygen Flow Rate 0 Narrative Exam Narrative: NAD, alert and oriented, fluent speech, calm. Normocephalic skull, EOMI, anicteric sclera, symmetric pupils. Oropharynx unremarkable, no droop. Neck supple, midline trachea, no adenopathy. Lungs clear, normal rate and effort. Heart regular, no murmur gallop or rub. Abdomen is soft, non distended and non tender. Extremities: Both legs are swollen and red, the left all the way up to just [id number] the right to just above the ankle. There was multiple excoriations and both anterior legs and the patient has multiple cracks in his swollen feet. Joints are not swollen or deformed. Judgment appears to be abnormal. Objective Labs 08/15/24 05:05 08/15/24 05:05 Labs: Laboratory Results - last 24 hr 08/15/24 05:05 WBC 6.8 RBC 4.71 Hgb 13.4 L Hct 41.0 MCV 87.1 MCH 28.5 MCHC 32.7 RDW 15.2 H Plt Count 190 Neut % (Auto) 79.2 H Lymph % (Auto) 9.7 L [place] % (Auto) 8.3 Eos % (Auto) 2.3 Baso % (Auto) 0.5 Neut # (Auto) 5400 Lymph # (Auto) 700 L [place] # (Auto) 600 Eos # (Auto) 200 Baso # (Auto) 0 Sodium 136 L Potassium 4.2 Chloride 107 Carbon Dioxide 23 BUN 24 H Creatinine 0.90 Estimated GFR > 60 BUN/Creatinine Ratio 26.7 H Glucose 131 H Calcium 8.8 PFSH Social History household members: none Smoking Status: Former smoker alcohol intake: current Assessment & Plan Assessment & Plan narrative: 1. Bilateral leg cellulitis, present on admission and active. 2. Bilateral LE edema Plan: -IV ceftriaxone, 1g Q 24 hours' --wound culture pending, with 3 different gram negative rods, pending speciation and sensitivities. -leg arterial and venous studies. Venous was negative for DVT. Arterial studies without any peripheral stenosis. -will have patient ambulate with therapies, recommend for SNF at this time, ordered wound care consultation for recommendations on dressings needed for ambulation. -continue pain control as needed. -CBC and CMP are stable and without significant abnormality today. -MRSA swab negative, no vancomycin needed. -will assess EF or for possible HF with LE edema. -BP soft, keep legs elevated, consider diuretic but be wary of possible hypotension Dispo: Inpatient, possible discharge home vs SNF pending repeat evaluations by PT, likely ready medically in 2-3 days Full resuscitation Additional history obtained via discussions with the manager of case management, bedside RN, and physical therapist. These discussions contributed to the creation of the above assessment and plan. I have reviewed patient's presenting documentation, labs, and imaging personally. Time-Based Coding :: [TOTAL MINUTES] spent with patient and on the chart (including review of chart, obtaining history, exam, reviewing outside data, placing orders, documenting exam and treatment plan, and counseling patient) on [DATE].
--- NOTE | 2024-08-15 12:47 | DI.ECHO.S_ITS ---
[facility] : : [address] : : [place] : : [id number] : : Phone: [phone] Echocardiogram Report + + :Name: IVANIA JOHNSON Study Date: 08/15/2024 Height: 69 in : :[facility] ReadingLocation: Weight: 247 lb : : Gender: Male BSA: 2.3 m2 : :: 1950 Age: 74 yrs BP: 115/83 mmHg: :Reason For Study: edema : :Ordering Physician: JAIDEN, : :SEEMA SOUZA Performed By: Nadira Youngblood : :Referring: SEEMA HWANG : + + Interpretation Summary 1. The left ventricular contractility is severely compromised. Estimate ejection fraction is approximately 15 to 20% with severe global hypokinesis. Mild concentric LVH. Unable to comment on diastolic function. 2. The right ventricular contractility is moderately compromised. 3. Four-chamber cardiac enlargement noted. 4. Moderate to severe mitral regurgitation. 5. Moderate to severe tricuspid regurgitation with estimated pulmonary systolic artery pressures of 38 mmHg. 6. Mild aortic insufficiency with moderate sclerosis but no significant stenosis. 7. No obvious intracardiac shunts. 8. No obvious intracardiac masses nor thrombi. 9. Trace, nonhemodynamically significant pericardial effusion present. 10. Elevated right-sided filling pressures. 11. Aortic root is dilated. Linear density was present in the aortic root as well as the ascending aorta. With the presence of a dilated aortic root, dissection cannot be excluded on this echocardiogram. Conclusion: Severe left ventricular systolic dysfunction with four-chamber cardiac enlargement. Moderate to severe valvular insufficiencies. Dilated aortic root with possible aortic dissection. *Dr. Guzman notified of results. Procedure: A two-dimensional transthoracic echocardiogram with color flow and Doppler was performed. The study was done portably. The study quality was technically adequate. The patient had an echocardiogram, but there is no comparison study available. The patient was in a tachycardic rhythm during the exam. The heart rate ranged between 95-157 bpm during the study. Left Ventricle: The left ventricle is mildly dilated. Left ventricular wall thickness is mildly increased. The ejection fraction is estimated to be 15- 20%. Diastolic function could not be accurately assessed due to tachycardia. Right Ventricle: The right ventricle is moderately dilated. Right ventricular systolic function is moderate to severely reduced. Atria: Both atria are severely dilated. There is no Doppler evidence for an interatrial shunt. Mitral Valve: The mitral valve leaflets appear moderately thickened, but open well. There is mild mitral annular calcification. There is no mitral valve stenosis. There is moderate mitral regurgitation. Aortic Valve: The aortic valve is trileaflet. There is moderately reduced leaflet mobility. There is moderate aortic valve sclerosis. The aortic valve is mildly calcified. There is no hemodynamically significant valvular aortic stenosis. There is mild aortic regurgitation. Tricuspid Valve: The tricuspid valve leaflets are thickened and/or calcified, but open well. There is moderate tricuspid regurgitation. The right ventricular systolic pressure is estimated to be at least 38 mmHg based on an estimated right atrial pressure of 15 mm Hg. Pulmonic Valve: The pulmonic valve is not well seen, but is grossly normal. There is a trace or physiologic amount of pulmonic regurgitation. Great Vessels: The aortic root is moderately dilated. The ascending aorta is at the upper limits of normal in size. The aortic arch could not be visualized. The pulmonary artery is normal size. The IVC is dilated (diameter is greater than 2.1 cm) and it collapses less than 50% with a sniff. This suggests a high right atrial pressure of 15 mm Hg. Pericardium/ Pleura There is a trivial to small pericardial effusion noted. There is no pleural effusion. MMode/2D Measurements & Calculations LVIDd: 5.8 cm LVOT diam: 2.3 cm LVIDs: 5.2 cm Ao root diam: 4.5 cm FS: 11.3 % asc Aorta Diam: 3.9 cm EPSS: 2.0 cm IVSd: 1.2 cm LVPWd: 1.1 cm LV oliveira. diameter/BSA (cm/m^2): 2.6 LV sys. diameter/BSA (cm/m^2): 2.3 LA A2 area: 30.7 cm2 RA long axis: 7.0 cm LA A4 area: 27.4 cm2 RA area: 32.0 cm2 LA length (vol): 6.2 cm RA vol: 123.7 ml LA vol: 114.8 ml RA : 54.8 ml/m2 LA vol index: 50.9 ml/m2 IVC diam: 3.2 cm TAPSE: 0.99 cm Doppler Measurements & Calculations Ao V2 max: 117.3 cm/sec LVOT Max David: 77.5 cm/sec Ao V2 mean: 84.8 cm/sec LV V1 max P.4 mmHg Ao max P.6 mmHg LV V1 VTI: 11.0 cm Ao mean P.3 mmHg DEUCE(I,D): 2.6 cm2 Ao V2 VTI: 17.3 cm DEUCE(V,D): 2.8 cm2 sev ratio: 0.64 DEUCE indexed to BSA (cm^2/m^2): 1.2 Lat Peak E' David: 8.6 cm/sec TR max david: 239.1 cm/sec MR ERO: 0.13 cm2 TR max P.9 mmHg PA V2 max: 52.6 cm/sec PA V2 mean: 32.8 cm/sec PA mean P.50 mmHg PA pr(Accel): 55.0 mmHg MR VTI: 130.7 cm MR PISA: 1.7 cm2 MR flow rate: 59.7 cm3/sec MR PISA radius: 0.51 cm SV(LVOT): 45.8 ml TV mean P.9 mmHg Reading Physician:
--- NOTE | 2024-08-15 14:25 | OT.IP.EVAL ---
Current Diagnoses Cellulitis of right lower limb (08/12/24) Cellulitis of left lower limb (08/12/24) Non-pressure chronic ulcer of other part of right foot with fat layer exposed (08/12/24) Non-pressure chronic ulcer of other part of left foot with fat layer exposed (08/12/24) Non-pressure chronic ulcer of other part of right lower leg with fat layer exposed (08/12/24) Non-pressure chronic ulcer of other part of left lower leg with fat layer exposed (08/12/24) Localized edema (08/12/24) Occupational Therapy Inpatient Evaluation/Re-Eval M1 PT/OT-IP Prior Functional Status Start: 08/14/24 08:04 Freq: NEEDED Status: Active Protocol: Document 08/15/24 14:27 [facility] (Rec: 08/15/24 14:43 [facility] [id number]) Medical Review Prior Functional Status Medical History Reviewed Yes Communication Unsure baseline diet and pt is able to communicate needs Mobility and Gait Pt reports he only mobilized as needed and was mostly sedentary. He soaked his feet until they were pink each morning. Pt reports no indoor tub or shower and he could bathe if he heated up water on the stove. [place] access if needed 2 mile away. Activities of Daily Living and IADL's Pt states he drove into town occ Social History Household Members none Living Arrangements House Number of Stairs To Enter/Railing? Pt states has a small place with one step to enter and just has a toilet and kitchen and working on getting shower. Home Environment Standard Height Toilet Additional Social History Comment Not working and pt states he sleeps in a high flat bed. Pt states he rolls around in an office chair at home to get around so able to stay off his feet. M2 OT-IP Current Condition Start: 08/15/24 14:27 Freq: Status: Active Protocol: Document 08/15/24 14:27 [facility] (Rec: 08/15/24 14:43 [facility] [id number]) Occupational Therapy Current Condition Current Condition Evaluation Date 08/08/24 Treatment Diagnosis Cellulitis BLE Diagnosis Onset Date 08/12/24 M3 OT- IP Subjective and Pain Start: 08/15/24 14:27 Freq: Status: Active Protocol: Document 08/15/24 14:27 [facility] (Rec: 08/15/24 14:43 [facility] [id number]) OT- Subjective Occupational Therapy Visit Type Type Initial Evaluation Visit Start Time 14:00 Visit Stop Time 14:25 Occupational Therapy Visit Comments Patient Comments Pt agreed to do OT eval and insistent that he is going home and not wanting to go to skilled rehab. OT Pain Assessment Pain When Pain Assessed At Rest Pain Present Pain Present Denied Pain M4 OT- IP ADL's Start: 08/15/24 14:27 Freq: Status: Active Protocol: Document 08/15/24 14:27 [facility] (Rec: 08/15/24 14:43 [facility] [id number]) OT NJT-Ycbl-Domcolu General Evaluation Self-Feeding Ability Independent OT ADL-Grooming Comments OT Grooming Comments Not performed. OT ADL-Oral Care Comments Oral Care Comments Pt refused. OT ADL-Dressing Comments OT Dressing Comments Pt will need assist with dressing changes to his legs at this time. Pt uses a back organ installer to assist to get clothing over his feet at home . Pt will benefit from LB dressing equipment and assist for wound care needs. OT ADL-Toileting Comments OT Toileting Comments Suggested if going home to bring a urinal home. Pt state was just up earlier. OT ADL-Bathing Comments OT Bathing Comments Educated pt of hygiene needs and to be sure that his hands are clean if having to do his bandage needs. Pt insists he uses bacteria wipes to clean his hands and legs. On OT eval , noted nails very dirty and questionable as to how well pt performs his hygiene needs. M5 OT- IP IADL's Start: 08/15/24 14:27 Freq: Status: Active Protocol: Document 08/15/24 14:27 [facility] (Rec: 08/15/24 14:43 [facility] [id number]) OT-Instrumental Activities of Daily Living Home Safety Awareness Home Safety Comments Pt insists that he is able to care for himself. Medication Management Medication Management Comments Pt would benefit from assist due to questionable judgment. M6 OT- IP Functional Cognition Start: 08/15/24 14:27 Freq: Status: Active Protocol: Document 08/15/24 14:27 [facility] (Rec: 08/15/24 14:43 [facility] [id number]) Cognitive Factors Limiting Selfcare Function Cognitive Ability Level of Alertness Alert Patient Orientation Name,Age,Birthday,Month,Date, Year,Day of Week,Place, Situation Attention Span Ability Capable of Focused Attention, Capable of Sustained Attention Ability to Follow Commands Able to Follow One Step Commands Safety Awareness Underestimates Need for Assistance Cognitive Tests SLUMS Pt refused to do cognitive assessment and insists that he is fine. Cognitive Comments Cognitive Assessment Comments Pt is insistent on his care and have decreased safety awareness for FWW use and mobility needs. Pt refused to do cognitive assessment and insists that he will be fine and mainly just concerns about how to manage his wounds. OT- Vision and Hearing OT- Hearing Assessment OT- Hearing Assessment WFL OT- Vision Assessment Visual Acuity Glasses For Reading Visual Attentiveness WFL Occular Pursuits WFL M7 OT- IP Mobility and Balance Start: 08/15/24 14:27 Freq: Status: Active Protocol: Document 08/15/24 14:27 [facility] (Rec: 08/15/24 14:43 [facility] [id number]) OT- Bed Mobility Assessment Supine to Sit Supine to Sit Assist Standby Assistance Sit to Supine Sit to Supine Assist Standby Assistance OT-Transfer Assessment Sit to and From Stand Sit to and from Stand Standby Assistance Comments Mobility Comments SBA to stand to FWW with bed raised up. Pt pushing up from the bed with his legs and hands on the FWW. Educated pt to push up from the bed. At this time bed to have at least supervision and assist especially if having to stand up from a lower surface. OT- Balance Assessment Sitting Balance and Reactions Static Sitting Balance Ability Normal Dynamic Sitting Balance Ability Good Standing Balance and Reactions Static Standing Balance Ability Fair M8 OT- IP Objective Assessments Start: 08/15/24 14:27 Freq: Status: Active Protocol: Document 08/15/24 14:27 [facility] (Rec: 08/15/24 14:43 [facility] [id number]) OT Gross Range of Motion Upper Extremity Range of Motion Assessment Within Functional Limits OT Strength Upper Extremity Strength Assessment Within Functional Limits Hand Jewelry Model Maker Strength Hand Dominance Right OT- Coordination Assessment Upper Extremity Finger to Nose Test Within Functional Limits M9 OT- IP Assessment and Plan Start: 08/15/24 14:27 Freq: Status: Active Protocol: Document 08/15/24 14:27 [facility] (Rec: 08/15/24 14:43 [facility] [id number]) OT Summary Assessment and Plan Potential Rehabilitation Potential Good Analytic Complexity at Evaluation Moderate Summary OT Impairments Balance,Functional Mobility, Grooming,Dressing,Toileting, Bathing,Toilet Transfers, Shower Transfers Progress Towards Goals Slow Progress due to Medical Issues Assessment Summary Pt MOD complexity and main barriers are decreased ability to care for his wounds, pt will benefit from assist at home to assist with his needs, otherwise will benefit from skilled rehab due to difficulty with mobility and safety needs. Pt is a bit insistent of his care and refusing a cognitive assessment at this time. Goals Dressing Goal Independent Toileting Goal Independent Bathing Goal Independent Toilet Transfer Goal Independent Shower Transfer Goal Independent Days to Meet Goals 10 Frequency of Treatment Other frequency 5x/week Treatment Plan OT Treatment Plan ADL Training,Functional Mobility,Patient/Family Education,Discharge Planning Other Treatment Recommendations and Next SLUMS Treatment Focus Discharge Recommendations OT Discharge Recommendations SNF Rehab,Home vs SNF Other Discharge Recommendations Pending assist, possibly home with assist and home health Home Equipment Needs WC,BSC,FWW Transportation Needs at Discharge Private Vehicle,Wheelchair/ Cabulance
[2024-08-15 20:00] VITALS: BP 142/83; PULSE 104; RESP 18; TEMP 36.6; O2SAT 96
[2024-08-15] MEDS: CIPROFLOXACIN 250 MG TABLET 750 MG PO (20:21)
[2024-08-16] MEDS: GABAPENTIN 100 MG CAPSULE PO ×3 (02:29→21:37)
[2024-08-16 05:08] LABS: Add Manual Diff / Slide Review NO; Basophils Absolute Auto 100 /uL (0-100); Basophils Percent Auto 1.2 % (0-2); Eosinophils Absolute Auto 100 /uL (0-450); Eosinophils Percent Auto 2.1 % (2-4); Hematocrit 40.5 % (41-53); Hemoglobin 13.1 g/dL (13.5-17.5); Lymphocytes Absolute Auto 600 /uL (1100-4500); Lymphocytes Percent Auto 9.7 % (25-40); Mean Corpuscular HGB Conc 32.3 % (30-36); Mean Corpuscular Hemoglobin 28.2 PG (26-34); Mean Corpuscular Volume 87.2 fL (80-100); Monocytes Absolute Auto 700 /uL (0-900); Monocytes Percent Auto 11.1 % (3-14); Neutrophils Absolute Auto 4700 /uL (1500-7000); Neutrophils Percent Auto 75.9 % (50-75); Platelet Count 182 X10^3/uL (150-400); Red Blood Cell Count 4.64 X10^6/uL (4.5-5.9); Red Cell Distribution Width 15.6 % (11.6-14.8); White Blood Cell Count 6.1 X10^3/uL (4.5-11.0)
[2024-08-16 05:14] LABS: BUN Creatinine Ratio 25.6 (6-22); Blood Urea Nitrogen 23 mg/dL (9-20); Calcium 8.5 mg/dL (8.4-10.2); Carbon Dioxide 23 mmol/L (22-32); Chloride 108 mmol/L (98-107); Estimated Glomerular Filt Rate > 60 mL/min (>60); Glucose 103 mg/dL (80-110); HEMOLYSIS < 15 (0-50); Potassium 4.5 mmol/L (3.4-5.1); Sodium 137 mmol/L (137-145)
[2024-08-16] MEDS: CIPROFLOXACIN 250 MG TABLET 750 MG PO ×2 (06:26→21:32)
[2024-08-16 07:00] VITALS: BP 115/74; PULSE 104; RESP 16; TEMP 36.2; O2SAT 93
--- NOTE | 2024-08-16 07:47 | P.PN_ITS ---
Subjective Subjective Date Patient Seen: 08/16/24 Interval history: He is seen in his room here today. He was admitted for bilateral lower extremity wounds. He has been found to have severe cardiomyopathy with ejection fraction of 15-20%. He also has markings at the aortic root that suggests possible aortic dissection. 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 He lives on [facility]. There are some cracks in the skin of his toes. Gabapentin helped with some leg pain last night so that will be continued routinely. We will obtain a chest CT and continue further evaluation of the cardiac situation. Begin beta-sydni and FEDERICA inhibitor as tolerated. Exam Vital Signs (past 8 hours): Oxygen Delivery Method Room Air Oxygen Flow Rate 0 Narrative Exam Narrative: Alert and oriented x3. No apparent distress. He is not able to offer any insight into any previous cardiac symptoms, cardiac condition, diagnoses or treatment. Heart is regular rate and rhythm without murmur Lungs are clear to auscultation bilaterally Extremities have 1+ edema. Skin has bilateral leg excoriations and skin cracks in the toes. Objective Labs 08/16/24 04:52 08/16/24 04:52 Labs: Laboratory Results - last 24 hr 08/16/24 04:52 WBC 6.1 RBC 4.64 Hgb 13.1 L Hct 40.5 L MCV 87.2 MCH 28.2 MCHC 32.3 RDW 15.6 H Plt Count 182 Neut % (Auto) 75.9 H Lymph % (Auto) 9.7 L Kane % (Auto) 11.1 Eos % (Auto) 2.1 Baso % (Auto) 1.2 Neut # (Auto) 4700 Lymph # (Auto) 600 L Kane # (Auto) 700 Eos # (Auto) 100 Baso # (Auto) 100 Sodium 137 Potassium 4.5 Chloride 108 H Carbon Dioxide 23 BUN 23 H Creatinine 0.90 Estimated GFR > 60 BUN/Creatinine Ratio 25.6 H Glucose 103 Calcium 8.5 PFSH Social History household members: none Smoking Status: Former smoker alcohol intake: current Assessment & Plan Assessment & Plan narrative: 1. Bilateral leg cellulitis, present on admission and active. 2. Bilateral LE edema 3. Severe Cardiomyopathy Plan: -IV ceftriaxone, 1g Q 24 hours' --wound culture pending, with 3 different gram negative rods, pending speciation and sensitivities. -leg arterial and venous studies. Venous was negative for DVT. Arterial studies without any peripheral stenosis. -will have patient ambulate with therapies, recommend for SNF at this time, ordered wound care consultation for recommendations on dressings needed for ambulation. -continue pain control as needed. -CBC and CMP are stable and without significant abnormality today. -MRSA swab negative, no vancomycin needed. Severe Cardiomyopathy -EF 15-20% -no history of takotsubo, alcoholic cardiomyopathy, math related cardiomyopathy, ischemic cardiomyopathy previously. -begin diuresis, beta-sydni, FEDERICA inhibitor as tolerated. -obtain CT angio to rule out aortic dissection -consider referral for Cardiology. Dispo: Inpatient, possible discharge home vs SNF pending repeat evaluations by PT, likely ready medically in 2-3 days Full resuscitation Additional history obtained via discussions with the protective services case worker, bedside RN, and physical therapist. These discussions contributed to the creation of the above assessment and plan. I have reviewed patient's presenting documentation and labs personally. Time-Based Coding :: [TOTAL MINUTES] spent with patient and on the chart (including review of chart, obtaining history, exam, reviewing outside data, placing orders, documenting exam and treatment plan, and counseling patient) on [DATE].
--- NOTE | 2024-08-16 09:19 | DI.CT.S_ITS ---
PROCEDURE: CT ANGIO CHEST INDICATIONS: Aorta dissection on Echo TECHNIQUE: After the administration of intravenous contrast, 2.5 mm thick sections acquired from the lung apices to the posterior lung bases. Maximum intensity projection (MIP) oblique sagittal reformats were then acquired parallel to the aortic arch. For radiation dose reduction, the following was used: automated exposure control. This exam was not cardiac-gated. COMPARISON: None. FINDINGS: Image quality: Excellent. Aorta: Aorta and great vessels are normal in size. No mural irregularity, intimal flap, or contrast extravasation to suggest aortic injury. There is atherosclerotic calcification of the aorta and its branch vessels. Lower Neck: No enlarged lymph nodes. Thyroid: No thyroid nodules which require sonographic follow up, per consensus guidelines. Axillae: No enlarged lymph nodes. Chest Wall: Unremarkable. Bones: Unremarkable. Lungs and Pleura: Moderate bilateral pleural effusions with compressive atelectasis of the lower lobes. There is no suspicious nodule or consolidation. Heart: Heart size is normal. No pericardial effusion. Thoracic Vessels: Pulmonary arteries demonstrate normal size. Mediastinum and Ofe: No enlarged lymph nodes. Esophagus: No wall thickening. No hiatal hernia. Upper Abdomen: Visualized upper abdomen solid organs and bowel loops appear normal. IMPRESSION: Aortic atherosclerosis without evidence of dissection or other injury. Bilateral pleural effusions. Dictated by: Marlena Carrasco M.D. on 08/16/2024 at 9:51 Approved by: Marlena Carrasco M.D. on 08/16/2024 at 9:57
[2024-08-16] MEDS: HEPARIN 5,000 UNIT/ML VIAL 5000 UNIT SUBCUT ×2 (09:22→21:32)
[2024-08-16] MEDS: SODIUM CHLORIDE 0.9% FLUSH 10 ML IV ×2 (09:22→21:38)
[2024-08-16] MEDS: FUROSEMIDE 20 MG/2 ML VIAL IV (10:42)
--- NOTE | 2024-08-16 11:50 | PT.IPTN ---
Current Diagnoses Cellulitis of right lower limb (08/12/24) Cellulitis of left lower limb (08/12/24) Non-pressure chronic ulcer of other part of right foot with fat layer exposed (08/12/24) Non-pressure chronic ulcer of other part of left foot with fat layer exposed (08/12/24) Non-pressure chronic ulcer of other part of right lower leg with fat layer exposed (08/12/24) Non-pressure chronic ulcer of other part of left lower leg with fat layer exposed (08/12/24) Localized edema (08/12/24) Physical Therapy Treatment Note M2 PT-IP Current Condition Start: 08/14/24 08:04 Freq: NEEDED Status: Active Protocol: Document 08/14/24 09:13 MB (Rec: 08/14/24 11:03 MB [id number]) Physical Therapy Current Condition Current Condition Evaluation Date 08/14/24 Treatment Diagnosis B LE cellulitis M3 PT-IP Subjective Start: 08/14/24 08:04 Freq: NEEDED Status: Active Protocol: Document 08/16/24 11:50 AB (Rec: 08/16/24 12:54 AB [id number]) Subjective Physical Therapy Visit Type Type Treatment Note Visit Start Time 11:50 Visit Stop Time 12:10 Number of DYE WEIGHER Visits 0 Physical Therapy Visit Comments Patient Comments agreeable to do PT Therapy Pain Assessment Pain When Pain Assessed At Rest Pain Present Pain Present Pain Reported Location bilateral feet Intensity 9 M4 PT-IP Mobility and Gait Start: 08/14/24 08:04 Freq: NEEDED Status: Active Protocol: Document 08/16/24 11:50 AB (Rec: 08/16/24 12:54 AB [id number]) PT-Transfer Assessment Sit to and From Stand Sit to and from Stand Standby Assistance Equipment Transfer Assistive Device Gait Belt,Front Wheeled Walker Orthotic/Prosthetic Devices or Brace: No Transfers Transfer Destination Toilet Transfer Technique ambulated Transfer Ability Level of Assist Standby Assistance Comments Mobility Comments checked on pt and pt sitting on EOB without gownon and needing assist with gown/brief change. pt stated that gown is wet and floor is wet. Assist pt with brief/gown change. pt stated that he was independent with all mobilities and ambulation without AD prior to current hospitalization. per OT note: pt is mostly sedentary and uses an office chair to roll/ move around the house to stay off his feet. pt also has 1 step to enter the house. sit to stand SBA with height of bed elevated per pt's request. pt wants height of bed elevated for sit to stand and stated that pain on BLE is more when he has to get up from a low bed. pt directs his own care and with resistance to suggestions. Pt ambulated in room ~ 40 ft using FWW SBA. pt requested to use the toilet and ambulated to the toilet using fWW SBA. completed toileting needs SBA. pt ambulated back to EOB using fWW SBA. does not want to sit on the chair. set up lunch tray next to pt. Left pt with employment case manager. Gait Assessment Gait Gait Assistance Required: Standby Assistance Distance (Feet) 40 Able to Maintain Weight Bearing Status Yes During Gait Assistive Devices Assistive Device Gait Belt,Front Wheeled Walker Orthotic/Prosthetic Devices or Brace: No Gait Deviations General Gait Pattern Antalgic,Decreased Stride Length,Decreased Feet Clearance Factors Limiting Gait Function Factors Limiting Gait Function Decreased Activity Tolerance, Decreased Strength,Limited Range of Motion,Pain,Poor Balance,Poor Safety Awareness M5 PT-IP Objective Assessments Start: 08/14/24 08:04 Freq: NEEDED Status: Active Protocol: Document 08/14/24 09:13 MB (Rec: 08/14/24 11:03 MB [id number]) Orientation Orientation/Cognition Level of Alertness Alert Orientation Name,Age,Birthday,Month,Year, Day of Week,Place,Situation Language Function Ability No Deficits Noted Safety Awareness Decreased Safety Awareness Comments Pt answers most questions but does not relay what is concerning him about home Gross Range of Motion Upper Extremity ROM Assessment Within Functional Limits Lower Extremity ROM Assessment Bilaterally Impaired Strength Comments Strength Comments No formal ROM or MMT LEs given skin issues/cellulitis, bleeding today Coordination Assessment Gross Coordination Gross Coordination Impaired Assessment Coordination Comments Moves legs together and in gross movements d/t pain, edema, and skin breakdown Sensation Assessment Comments Sensation Comments NT M6 PT-IP Treatment Start: 08/14/24 08:04 Freq: NEEDED Status: Active Protocol: Document 08/16/24 11:50 AB (Rec: 08/16/24 12:54 AB [id number]) Physical Therapy Treatment Education Education Provided Safety M7 PT-IP Assessment and Plan Start: 08/14/24 08:04 Freq: NEEDED Status: Active Protocol: Document 08/16/24 11:50 AB (Rec: 08/16/24 12:54 AB [id number]) PT Summary Assessment and Plan Potential Rehabilitation Potential Fair Summary Impairments Pain,ROM,Strength,Balance, Coordination,Sensation,Tone, Cognition,Bed Mobility, Transfers,Gait,Activity Tolerance Assessment Summary pt requiring SBA with mobility using FWW. Recommending use of FWW at this time. pt lives alone and will benefit from services. will continue to assess progress. Goals Bed Mobility Goal Independent Transfer Goal Standby Assistance,Front Wheeled Walker Gait Goal Standby Assistance,Front Wheel Walker Gait Distance 100 Other Goals up/down 1 step using FWW Days to Meet Goals 10 Frequency of Treatment Frequency Of Treatment Once a Day Treatment Plan Physical Therapy Treatment Plan Bed Mobility Training,Transfer Training,Gait Training, Therapeutic Exercise,Balance Retraining,Discharge Planning, Hot or Cold Pack,Neuromuscular Re-ed,Coordination Retraining ,Manual Therapy Recommendations To Nursing Amount of Assist Needed Standby Assistance Discharge Recommendations PT Discharge Recommendations Home with Assistance,Home Health Equipment Needed for Home Before FWW Discharge Transportation Needs at Discharge Private Vehicle
[2024-08-16] MEDS: HYDROCODONE/ACET 5/325 TABLET 2 TAB PO (13:40)
--- NOTE | 2024-08-16 13:53 | EKG_ITS ---
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
--- NOTE | 2024-08-16 13:55 | CM.DPC ---
DCP Cont: Per MD, pt now with severe cardiomyopathy with EF 15-20% which likely contributing to his edema/fluid overload/cellulitis. Per Wound Consult, recommending daily dressing changes, elevation of his legs, and outpt Wound Clinic. Per PT, 40 ft in room SBA and recommending home with assist and HH. SW met bedside with pt and explained role and pt confirms that he drove himself to the hospital and vehicle is in the parking lot and he plans to drive himself home at d/c but concerned he left his vehicle unlocked and SW helped contact [employer] and they will help confirm pt's vehicle is locked and in the parking lot. SW discussed possible options of HH RN, outpt wound clinic, SNF. Pt declines SNF as well as HH RN for wound care as pt states he feels he can find enough care on [facility] between his PCP and local resources and does not want too many hands in the pot to have to coordinate with. Pt provided a card for [facility], Dahlia Mcarthur, that pt is hopeful can provide wound care/dressing changes on [facility] at discharge. SW called Dahlia Mcarthur and left msg requesting call back to confirm if she can provide wound care and if so then could provide Dr. Ramos wound care recommendations. Pt states it [place] not financially [place] to establish with Wound Clinic off [place] at this time. Pt also confirms he is not interested in Cardiology or heart management at this time and wants to focus on healing his legs/feet at this time and then maybe address his other health issues at a later date. DENISA sent msg to the TCM group to inquire if they want notification for f/u appointments for Maribell Duran's patients on [facility]. Plan: SW to follow for return call from Dahlia at [facility] to confirm if she can assist with wound care/dressing changes at d/c for pt's preference of d/c home via his own vehicle in the parking lot and PCP follow up as pt declining further services at this time. ELIZA Browne
--- NOTE | 2024-08-16 15:06 | PC.NURSE ---
Dressing change completed this afternoon. Patient medicated with PRN [place]. Old dressing removed and open areas cleaned gently with saline and washcloth. Iodosorb applied to open areas which were then covered with ABD pad or non-adherent dressing depending on size of open area. Kerlex used to hold absorbent pads in place, whole thing covered with tubigrip. Wounds to R leg smaller and almost completely scabbed over. L leg with significantly more open areas, drainage and pain.
[2024-08-16] MEDS: CALCIUM CARBONATE 500 MG TAB 1000 MG PO (18:59)
[2024-08-16 19:00] VITALS: BP 111/73; PULSE 87; RESP 19; TEMP 36.2; O2SAT 96
--- NOTE | 2024-08-17 03:17 | PC.NURSE ---
Assumed care of patient at 0314.
[2024-08-17] MEDS: CIPROFLOXACIN 250 MG TABLET 750 MG PO ×2 (06:26→20:33)
--- NOTE | 2024-08-17 07:45 | PM.PN.1 ---
Subjective Subjective Date Patient Seen: 08/17/24 Interval history: He is seen in his room here this morning. He continues to be unconcerned about his atrial fibrillation and new cardiomyopathy. He says several times that he wishes to concentrate on his legs, get those better, and then he will worry about his heart. On chest x-ray he has massive cardiomegaly. The pleural effusions are not visible. CT scan shows significant pleural effusions. These films are shown to him in an effort to remove this condition from the ?theoretical to the practical. ? He seems somewhat impressed and eventually does agree to resume the Lasix which he had been refusing. He says that he will not take anything for the heart as far as FEDERICA inhibitor, beta-sydni, etc.. We will try to obtain daily weights. His legs are looking better. He is refusing the heparin shots. I talked with him about qualifying for hospice with this low level of cardiac function if he chooses not to treat. Exam Vital Signs (past 8 hours): Oxygen Delivery Method Room Air Oxygen Flow Rate 0 Narrative Exam Narrative: Alert and oriented x3. No apparent distress. Heart is irregular. No murmur. Lungs are clear to auscultation bilaterally Legs are wrapped but appear to have only trace edema currently. Open wounds have progressed to scabs in the visible areas. Objective Labs 08/16/24 04:52 08/16/24 04:52 [facility] Social History household members: none Smoking Status: Former smoker alcohol intake: current Assessment & Plan Assessment & Plan narrative: 1. Bilateral leg cellulitis, 3 species on culture 2. Bilateral LE edema 3. Severe Cardiomyopathy 4. Atrial fibrillation 5. Pleural Effusion Plan: - PO Cipro - All organisms are sensitive --wound culture with Aeromonas species, Raoultella Planticola and Proteus penneri. All 3 are sensitive to cefepime and Cipro. -leg arterial and venous studies. Venous was negative for DVT. Arterial studies without any peripheral stenosis. -ambulate with therapies, recommend for SNF at this time, ordered wound care consultation for recommendations on dressings needed for ambulation. -continue pain control as needed. -MRSA swab negative, no vancomycin needed. -continue diuresis Severe Cardiomyopathy/Atrial fibrillation/Pleural Effusion -EF 15-20% on Echo -Afib on EKG -Pleural Effusions on CT -no history of takotsubo, alcoholic cardiomyopathy, meth related cardiomyopathy, ischemic cardiomyopathy previously. -Continue diuresis, beta-sydni, FEDERICA inhibitor if he will agree -Check TSH -CT angio ruled out aortic dissection -outpatient referral to cardiology -patient is inclined to not address the cardiac situation, in which case hospice is recommended. Disposition: Discharge home vs SNF pending repeat evaluations by PT, likely ready medically in 1-2 days Time-Based Coding :: [TOTAL MINUTES] spent with patient and on the chart (including review of chart, obtaining history, exam, reviewing outside data, placing orders, documenting exam and treatment plan, and counseling patient) on [DATE].
--- NOTE | 2024-08-17 07:48 | DI.RAD.S_ITS ---
PROCEDURE: XR CHEST 1V INDICATIONS: Pleural effusion TECHNIQUE: One view of the chest was acquired. COMPARISON: [facility], CT, CT ANGIO CHEST, 08/16/2024, 9:21. FINDINGS: Surgical changes and devices: None. Lungs and pleura: Low lung volumes. There are trace bilateral effusions. No dense consolidation Mediastinum: Cardiomegaly Bones and chest wall: Degenerative changes IMPRESSION: Trace bilateral effusions, likely decreased allowing for differences in modality. Limited single view radiograph with low lung volumes. Cardiomegaly. Dictated by: Ilir Austin M.D. on 08/17/2024 at 8:06 Approved by: Ilir Austin M.D. on 08/17/2024 at 8:07
[2024-08-17 08:00] VITALS: BP 128/96; PULSE 99; RESP 18; TEMP 35.9; O2SAT 96
[2024-08-17 09:27] VITALS: O2SAT 96
[2024-08-17] MEDS: SODIUM CHLORIDE 0.9% FLUSH 10 ML IV ×2 (09:53→20:33)
[2024-08-17] MEDS: FUROSEMIDE 20 MG/2 ML VIAL IV (09:53)
[2024-08-17] MEDS: GABAPENTIN 100 MG CAPSULE PO ×2 (09:53→20:33)
[2024-08-17] MEDS: CALCIUM CARBONATE 500 MG TAB 1000 MG PO (11:19)
--- NOTE | 2024-08-17 13:10 | PT-IP ANOTE ---
PT checks on pt twice this afternoon. First attempt, pt eating lunch, sitting EOB. Second attempt, pt sleeping soundly. Con't PT efforts next date. PT con't to recommend SNF at d/c given no assistance at home, wound and mobility issues and pt lives on [place] with decreased accessibility to medical care.
[2024-08-17 13:13] LABS: TSH w/ Reflex to FT4 2.59 uIU/mL (0.47-4.68)
[2024-08-17] MEDS: HYDROCODONE/ACET 5/325 TABLET 2 TAB PO (16:15)
[2024-08-17 20:00] VITALS: BP 131/89; PULSE 107; RESP 24; TEMP 36.2; O2SAT 95
--- NOTE | 2024-08-17 21:11 | PC.NURSE ---
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 Offered condom catheter d/t concern for urinating overnight while on lasix, patient stated no, I will take it tomorrow. I need to give myself a break. Notified MD Amado of patient refusal.
[2024-08-18] MEDS: CIPROFLOXACIN 250 MG TABLET 750 MG PO ×2 (06:50→20:07)
[2024-08-18 07:57] VITALS: O2SAT 95
[2024-08-18 08:00] VITALS: BP 146/96; PULSE 80; RESP 18; TEMP 36.2; O2SAT 96
--- NOTE | 2024-08-18 09:00 | PC.NURSE ---
Addendum entered by Alka Vallejo R.N. 08/18/24 19:20: 1920 Report given to caleb HERNANDEZ. Plan of care discussed. Call light within reach and bed in lowest position. 1850 Rounded on patient. Patient no longer complaining of dizziness. Denies any pain, numbness or tingling. 1844 Patient complaining of dizziness while in chair. BP elevated 150s/100s. MD Dodd aware. Patient assisted to bed. Orders received for Meclizine. Addendum entered by Alka Vallejo R.N. 08/18/24 16:27: 1627 Dressing changed to BLE. Call placed to MD Ramos regarding wound medication. Message left. No answer at this time. Original Note: 0654 Report received from caleb HERNANDEZ. Patient AAO x's 3. 2 L NC noted. BLE dressing noted, redness and mild edema noted. PIV noted SL to L wrist. Abdomen round. Patient able to KIRKPATRICK. 0900 MD Dodd at the bedside, updating patient on plan of care. Patient reluctant to treating heart diagnosis, want to treat BLE first. MD educating patient on importance of treatment.
[2024-08-18] MEDS: FUROSEMIDE 20 MG/2 ML VIAL IV (09:09)
[2024-08-18] MEDS: GABAPENTIN 100 MG CAPSULE PO ×2 (09:09→20:07)
[2024-08-18 09:10] VITALS: BP 146/96
[2024-08-18] MEDS: HEPARIN 5,000 UNIT/ML VIAL 5000 UNIT SUBCUT ×2 (09:10→20:07)
[2024-08-18] MEDS: SODIUM CHLORIDE 0.9% FLUSH 10 ML IV ×2 (09:10→20:08)
[2024-08-18] MEDS: lisinopriL 5 MG TABLET PO (09:10)
--- NOTE | 2024-08-18 10:20 | OT.IP.TRT ---
Current Diagnoses Cellulitis of right lower limb (08/12/24) Cellulitis of left lower limb (08/12/24) Non-pressure chronic ulcer of other part of right foot with fat layer exposed (08/12/24) Non-pressure chronic ulcer of other part of left foot with fat layer exposed (08/12/24) Non-pressure chronic ulcer of other part of right lower leg with fat layer exposed (08/12/24) Non-pressure chronic ulcer of other part of left lower leg with fat layer exposed (08/12/24) Localized edema (08/12/24) Occupational Therapy Treatment Note M2 OT-IP Current Condition Start: 08/15/24 14:27 Freq: Status: Active Protocol: Document 08/15/24 14:27 CCC (Rec: 08/15/24 14:43 [facility] [id number]) Occupational Therapy Current Condition Current Condition Evaluation Date 08/08/24 Treatment Diagnosis Cellulitis BLE Diagnosis Onset Date 08/12/24 M3 OT- IP Subjective and Pain Start: 08/15/24 14:27 Freq: Status: Active Protocol: Document 08/18/24 10:34 CGR (Rec: 08/18/24 10:48 CGR [id number]) OT- Subjective Occupational Therapy Visit Type Type Treatment Note Visit Start Time 09:52 Visit Stop Time 10:20 Notes Pt agreeable to SLUMS OT Pain Assessment Pain When Pain Assessed At Rest Pain Present Pain Present Denied Pain M4 OT- IP ADL's Start: 08/15/24 14:27 Freq: Status: Active Protocol: Document 08/18/24 10:34 CGR (Rec: 08/18/24 10:48 CGR [id number]) OT [id number] Comments OT Self-Feeding Comments not meal time OT ADL-Grooming Comments OT Grooming Comments pt declined OT ADL-Oral Care Comments Oral Care Comments pt declined OT ADL-Dressing Comments OT Dressing Comments pt declined OT ADL-Toileting General Evaluation Toileting Ability Independent Devices Toileting Assistive Devices Urinal Comments OT Toileting Comments sitting up in bed OT ADL-Bathing Comments OT Bathing Comments not performed M5 OT- IP IADL's Start: 08/15/24 14:27 Freq: Status: Active Protocol: Document 08/15/24 14:27 CCC (Rec: 08/15/24 14:43 CCC [id number]) OT-Instrumental Activities of Daily Living Home Safety Awareness Home Safety Comments Pt insists that he is able to care for himself. Medication Management Medication Management Comments Pt would benefit from assist due to questionable judgement. M6 OT- IP Functional Cognition Start: 08/15/24 14:27 Freq: Status: Active Protocol: Document 08/18/24 10:34 CGR (Rec: 08/18/24 10:48 CGR [id number]) Cognitive Factors Limiting Selfcare Function Cognitive Ability Level of Alertness Alert Patient Orientation Name,Age,Birthday,Month,Date, Year,Day of Week,Place, Situation Attention Span Ability Capable of Focused Attention, Capable of Sustained Attention Ability to Follow Commands Able to Follow One Step Commands with Increased Time, Able to Follow One Step Commands with Repetition Cognitive Tests SLUMS Pt scored a 24/30 on the SLUMS today. Pt missed 2 points for the time on the clock with the long hand representing the hour and the short representing the minute on his drawing, and 4 points missed for the listening comprehension section where he missed the name of the female and where she lived. He was able to recall [place] but was unable to identify that the state would be [place]. Cognitive Comments Cognitive Assessment Comments Pt states that he finished high school but nothing further in organized education . 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 M7 OT- IP Mobility and Balance Start: 08/15/24 14:27 Freq: Status: Active Protocol: Document 08/15/24 14:27 [facility] (Rec: 08/15/24 14:43 CCC [id number]) OT- Bed Mobility Assessment Supine to Sit Supine to Sit Assist Standby Assistance Sit to Supine Sit to Supine Assist Standby Assistance OT-Transfer Assessment Sit to and From Stand Sit to and from Stand Standby Assistance Comments Mobility Comments SBA to stand to FWW with bed raised up. Pt pushing up from the bed with his legs and hands on the FWW. Educated pt to push up from the bed. At this time bed to have at least supervision and assist especailly if havin to stand up from a lower surface. 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 Hand Dominance Right OT- Coordination Assessment Upper Extremity Finger to Nose Test Within Functional Limits M9 OT- IP Assessment and Plan Start: 08/15/24 14:27 Freq: Status: Active Protocol: Document 08/18/24 10:34 CGR (Rec: 08/18/24 10:48 CGR [id number]) OT Summary Assessment and Plan Potential Rehabilitation Potential Good Analytic Complexity at Evaluation Moderate Summary OT Impairments Balance,Functional Mobility, Grooming,Dressing,Toileting, Bathing,Toilet Transfers, Shower Transfers Progress Towards Goals Slow Progress due to Medical Issues Assessment Summary Pt MOD complexity and main barriers are decreased ability to care for his wounds, pt will benefit from assist at home to assist with his needs, otherwise will benefit from skilled rehab due to difficulty with mobility and safety needs. Pt is a bit insistent of his care and refusing a cognitive assessment at this time. Goals Dressing Goal Independent Toileting Goal Independent Bathing Goal Independent Toilet Transfer Goal Independent Shower Transfer Goal Independent Days to Meet Goals 10 Frequency of Treatment Other frequency 5x/week Treatment Plan OT Treatment Plan ADL Training,Functional Mobility,Patient/Family Education,Discharge Planning Other Treatment Recommendations and Next SLUMS Treatment Focus Discharge Recommendations OT Discharge Recommendations SNF Rehab,Home vs SNF Other Discharge Recommendations Pending assist, possibly home with assist and home health Home Equipment Needs WC,BSC,FWW Transportation Needs at Discharge Private Vehicle,Wheelchair/ Cabulance
--- NOTE | 2024-08-18 12:41 | CM.DPC ---
DCP Cont: Per MD, had lengthy discussion with pt regarding his heart failure and pt now willing to do lasix and take heart medication towards improvement with his legs/feet. Pt now likely here a couple days for diuresis and then plan of discharge home. DENISA left another msg with pt's preferred [facility] [phone] Dahlia Lyubov to determine if she can provide any wound care/dressing changes. DENISA updated TCM group as pt will need f/u appointment scheduled with his PCP on Christa Duran. Plan: SW to follow for pt's preference of discharge home via his own vehicle in the parking lot and f/u with PCP and help determine if Dahlia Lyubov can assist with dressing changes as pt continues to decline HH or SNF at this time. ELIZA Browne
--- NOTE | 2024-08-18 15:38 | PT-IP ANOTE ---
PT checks in on pt who is sitting up in recliner with legs elevated. He states that his legs are stinging. He declines out of chair and gait with PT this afternoon.
--- NOTE | 2024-08-18 17:16 | P.PN_ITS ---
Subjective Subjective Interval history: Again counseled today. He is more concerned about his feed. He was agreeable to starting medications for heart failure. He states he has been told before of his heart problems. I was able to relate to him that taking some of these medications may help his feet. Exam Vital Signs (past 8 hours): Fraction of Inspired Oxygen 28 SaO2/FiO2 Ratio 339 Oxygen Delivery Method Nasal Cannula Oxygen Flow Rate 2 Narrative Exam Narrative: Alert and oriented x3. No apparent distress. Heart is irregular. No murmur. Lungs are clear to auscultation bilaterally Legs are wrapped but appear to have only trace edema currently. Open wounds have progressed to scabs in the visible areas. Objective Labs 08/16/24 04:52 08/16/24 04:52 [facility] Social History household members: none Smoking Status: Former smoker alcohol intake: current Assessment & Plan Assessment & Plan narrative: 1. Bilateral leg cellulitis, 3 species on culture 2. Bilateral LE edema 3. Severe Cardiomyopathy, acute (presumably on chronic) systolic heart failure. 4. Atrial fibrillation 5. Pleural Effusion Plan: - PO Cipro - All organisms are sensitive --wound culture with Aeromonas species, Raoultella Planticola and Proteus penneri. All 3 are sensitive to cefepime and Cipro. -leg arterial and venous studies. Venous was negative for DVT. Arterial studies without any peripheral stenosis. -ambulate with therapies, recommend for SNF at this time, ordered wound care consultation for recommendations on dressings needed for ambulation. -continue pain control as needed. -MRSA swab negative, no vancomycin needed. -continue diuresis Severe Cardiomyopathy/Atrial fibrillation/Pleural Effusion with acute respiratory failure with hypoxia -EF 15-20% on Echo, he states he has had problems with his heart before, but unknown if any prior echos. -Afib on EKG -Pleural Effusions on CT -no history of takotsubo, alcoholic cardiomyopathy, meth related cardiomyopathy, ischemic cardiomyopathy previously. -Continue diuresis. Start lisinopril 5 mg daily today, beta sydni when more euvolemic. -Check TSH -CT angio ruled out aortic dissection -outpatient referral to cardiology -wean O2 as tolerated. -introduce medications slowly given patient's hesitance to start medications, will try to convince him to also start apixaban for stroke prevention. Disposition: Refusing SNF, likely home when hypoxia resolved. He is also refusing home health. Time-Based Coding :: [TOTAL MINUTES] spent with patient and on the chart (including review of chart, obtaining history, exam, reviewing outside data, placing orders, documenting exam and treatment plan, and counseling patient) on [DATE].
[2024-08-18 18:40] VITALS: BP 153/106; PULSE 106; O2SAT 96
[2024-08-18 19:33] VITALS: BP 140/102; PULSE 102; RESP 18; TEMP 36.3; O2SAT 97
[2024-08-18 19:55] VITALS: PULSE 116; O2SAT 98
[2024-08-18] MEDS: MECLIZINE HCL 12.5 MG TABLET 25 MG PO (20:07)
--- NOTE | 2024-08-18 21:18 | PC.NURSE ---
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 Educated on importance of medication, patient refused stating he will take it tomorrow. notified.
[2024-08-19 04:58] LABS: Add Manual Diff / Slide Review NO; Basophils Absolute Auto 0 /uL (0-100); Basophils Percent Auto 0.8 % (0-2); Eosinophils Absolute Auto 200 /uL (0-450); Eosinophils Percent Auto 3.2 % (2-4); Hemoglobin 12.8 g/dL (13.5-17.5); Lymphocytes Absolute Auto 500 /uL (1100-4500); Lymphocytes Percent Auto 8.8 % (25-40); Mean Corpuscular Hemoglobin 28.1 PG (26-34); Mean Corpuscular Volume 87.7 fL (80-100); Monocytes Absolute Auto 600 /uL (0-900); Monocytes Percent Auto 10.5 % (3-14); Neutrophils Absolute Auto 4600 /uL (1500-7000); Neutrophils Percent Auto 76.7 % (50-75); Platelet Count 164 X10^3/uL (150-400); Red Blood Cell Count 4.56 X10^6/uL (4.5-5.9); Red Cell Distribution Width 15.8 % (11.6-14.8)
[2024-08-19 05:27] LABS: BUN Creatinine Ratio 25.9 (6-22); Blood Urea Nitrogen 21 mg/dL (9-20); Calcium 8.7 mg/dL (8.4-10.2); Carbon Dioxide 28 mmol/L (22-32); Chloride 105 mmol/L (98-107); Estimated Glomerular Filt Rate > 60 mL/min (>60); Glucose 94 mg/dL (80-110); HEMOLYSIS < 15 (0-50); Magnesium 1.6 mg/dL (1.6-2.3); Potassium 4.4 mmol/L (3.4-5.1); Sodium 138 mmol/L (137-145)
[2024-08-19 08:00] VITALS: BP 115/85; PULSE 103; RESP 21; TEMP 36; O2SAT 97
[2024-08-19] MEDS: FUROSEMIDE 20 MG/2 ML VIAL IV (08:16)
[2024-08-19 08:17] VITALS: BP 142/100; PULSE 95
[2024-08-19] MEDS: HEPARIN 5,000 UNIT/ML VIAL 5000 UNIT SUBCUT ×2 (08:17→19:58)
[2024-08-19] MEDS: CIPROFLOXACIN 250 MG TABLET 750 MG PO ×2 (08:17→19:58)
[2024-08-19] MEDS: lisinopriL 5 MG TABLET PO (08:17)
[2024-08-19] MEDS: GABAPENTIN 100 MG CAPSULE PO ×2 (08:17→19:58)
[2024-08-19] MEDS: SODIUM CHLORIDE 0.9% FLUSH 10 ML IV ×2 (08:20→20:03)
[2024-08-19] MEDS: MAGNESIUM CHLORIDE 64 MG TABLET 128 MG PO (09:04)
[2024-08-19 09:57] VITALS: O2SAT 95
--- NOTE | 2024-08-19 10:30 | CM.DPC ---
DCP Cont. Reviewed EMR and team rounds for status updates. Pt continues to be diuresed, however he is now refusing any further lasix. Plan to d/c if he continues to refuse tx. Monitoring for d/c needs, likely will need a [facility] [employer] [place]
--- NOTE | 2024-08-19 11:32 | OT.IPNOTE ---
Pt refusing OT treatment at this time.
--- NOTE | 2024-08-19 12:46 | PT-IP ANOTE ---
checked on pt x 2 this morning for PT but pt refused PT. stated that he is trying to stay off his feet. educated pt on importance of mobility. pt continues to refuse and stated that he just wants to sleep.
--- NOTE | 2024-08-19 14:21 | PT-IP ANOTE ---
checked on pt again and continues to refuse. stated that his LE are getting better and he is trying to take pressure off his LE and not want to get up and walk. informed pt regarding continued refusals for PT and probable d/c due to refusals. pt understood and stated that he will walk tomorrow. will f/u. nurse aware.
--- NOTE | 2024-08-19 14:24 | PM.PN.1 ---
Subjective Subjective Interval history: Refused lasix overnight, okay today. Recounseled on relationship between fluid in his feet and his skin condition / cellulitis. Exam Vital Signs (past 8 hours): - 08/19/24 08:00 08/19/24 08:17 08/19/24 08:30 Temperature 96.8 F L Pulse Rate 103 H 95 H Respiratory Rate 21 Blood Pressure 115/85 142/100 H Pulse Oximetry 97 Oxygen Delivery Method Nasal Cannula Oxygen Flow Rate 3 Fraction of Inspired Oxygen 08/19/24 09:57 Temperature Pulse Rate Respiratory Rate Blood Pressure Pulse Oximetry 95 Oxygen Delivery Method Nasal Cannula Oxygen Flow Rate 2 Fraction of Inspired Oxygen 28 Fraction of Inspired Oxygen 28 SaO2/FiO2 Ratio 339 Oxygen Delivery Method Nasal Cannula Oxygen Flow Rate 2 Narrative Exam Narrative: Alert and oriented x3. No apparent distress. Heart is irregular. No murmur. Lungs are clear to auscultation bilaterally Legs are wrapped but appear to have only trace edema currently. Open wounds have progressed to scabs in the visible areas. Objective Labs 08/19/24 04:27 08/19/24 04:27 Labs: Laboratory Results - last 24 hr 08/19/24 04:27 WBC 6.0 RBC 4.56 Hgb 12.8 L Hct 40.0 L MCV 87.7 MCH 28.1 MCHC 32.0 RDW 15.8 H Plt Count 164 Neut % (Auto) 76.7 H Lymph % (Auto) 8.[address] [place] % (Auto) 10.5 Eos % (Auto) 3.2 Baso % (Auto) 0.8 Neut # (Auto) 4600 Lymph # (Auto) [address] [place] # (Auto) 600 Eos # (Auto) 200 Baso # (Auto) 0 Sodium 138 Potassium 4.4 Chloride 105 Carbon Dioxide 28 BUN 21 H Creatinine 0.81 Estimated GFR > 60 BUN/Creatinine Ratio 25.9 H Glucose 94 Calcium 8.7 Magnesium 1.6 PFSH Social History household members: none Smoking Status: Former smoker alcohol intake: current Assessment & Plan Assessment & Plan narrative: 1. Bilateral leg cellulitis, 3 species on culture 2. Bilateral LE edema 3. Severe Cardiomyopathy, acute (presumably on chronic) systolic heart failure. 4. Atrial fibrillation 5. Pleural Effusion Plan: - PO Cipro - All organisms are sensitive --wound culture with Aeromonas species, Raoultella Planticola and Proteus penneri. All 3 are sensitive to cefepime and Cipro. -leg arterial and venous studies. Venous was negative for DVT. Arterial studies without any peripheral stenosis. -ambulate with therapies, recommend for SNF at this time, ordered wound care consultation for recommendations on dressings needed for ambulation. -continue pain control as needed. -MRSA swab negative, no vancomycin needed. -continue diuresis Severe Cardiomyopathy/Atrial fibrillation/Pleural Effusion with acute respiratory failure with hypoxia -EF 15-20% on Echo, he states he has had problems with his heart before, but unknown if any prior echos. -Afib on EKG -Pleural Effusions on CT -no history of takotsubo, alcoholic cardiomyopathy, meth related cardiomyopathy, ischemic cardiomyopathy previously. -Continue diuresis. Start lisinopril 5 mg daily today, beta sydni when more euvolemic. -Check TSH -CT angio ruled out aortic dissection -outpatient referral to cardiology -wean O2 as tolerated. -introduce medications slowly given patient's hesitance to start medications, will try to convince him to also start apixaban for stroke prevention. Disposition: Refusing SNF, likely home when hypoxia resolved. He is also refusing home health. Time-Based Coding :: [TOTAL MINUTES] spent with patient and on the chart (including review of chart, obtaining history, exam, reviewing outside data, placing orders, documenting exam and treatment plan, and counseling patient) on [DATE].
--- NOTE | 2024-08-19 16:00 | OT.IP.TRT ---
Current Diagnoses Cellulitis of right lower limb (08/12/24) Cellulitis of left lower limb (08/12/24) Non-pressure chronic ulcer of other part of right foot with fat layer exposed (08/12/24) Non-pressure chronic ulcer of other part of left foot with fat layer exposed (08/12/24) Non-pressure chronic ulcer of other part of right lower leg with fat layer exposed (08/12/24) Non-pressure chronic ulcer of other part of left lower leg with fat layer exposed (08/12/24) Localized edema (08/12/24) Occupational Therapy Treatment Note M2 OT-IP Current Condition Start: 08/15/24 14:27 Freq: Status: Active Protocol: Document 08/15/24 14:27 [facility] (Rec: 08/15/24 14:43 [facility] [id number]) Occupational Therapy Current Condition Current Condition Evaluation Date 08/08/24 Treatment Diagnosis Cellulitis BLE Diagnosis Onset Date 08/12/24 M3 OT- IP Subjective and Pain Start: 08/15/24 14:27 Freq: Status: Active Protocol: Document 08/19/24 16:00 [facility] (Rec: 08/19/24 16:08 [facility] [id number]) OT- Subjective Occupational Therapy Visit Type Type Treatment Note Visit Start Time 15:00 Visit Stop Time 16:00 Occupational Therapy Visit Comments Patient Comments Pt agreed to brush his teeth and use mouth wash. Noted pt gown wet and agreed to shower. Nursing able to assist with his LLE dressing needs. Patient/Caregiver Goals TO go home. OT Pain Assessment Pain When Pain Assessed At Rest Pain Present Pain Present Denied Pain M4 OT- IP ADL's Start: 08/15/24 14:27 Freq: Status: Active Protocol: Document 08/19/24 16:00 [facility] (Rec: 08/19/24 16:08 [facility] [id number]) OT [id number] Comments OT Self-Feeding Comments not meal time OT ADL-Grooming General Evaluation Grooming Ability Independent OT ADL-Oral Care General Eval Oral Care Ability Independent OT ADL-Dressing Comments OT Dressing Comments Nursing able to assist with all dressing needs for his legs. OT ADL-Bathing Bathing Type Bathing Type Shower General Evaluation Bathing Ability Minimal Assistance Comments OT Bathing Comments Assist to wash his back and CGA while standing for pericare needs. Pt states first time showered in several weeks. Pt does not had a shower at home. M5 OT- IP IADL's Start: 08/15/24 14:27 Freq: Status: Active Protocol: Document 08/15/24 14:27 [facility] (Rec: 08/15/24 14:43 [facility] [id number]) OT-Instrumental Activities of Daily Living Home Safety Awareness Home Safety Comments Pt insists that he is able to care for himself. Medication Management Medication Management Comments Pt would benefit from assist due to questionable judgement. M6 OT- IP Functional Cognition Start: 08/15/24 14:27 Freq: Status: Active Protocol: Document 08/19/24 16:00 [facility] (Rec: 08/19/24 16:08 [facility] [id number]) Cognitive Factors Limiting Selfcare Function Cognitive Comments Cognitive Assessment Comments Pt needing reminders not to touch his legs with his hands as nail still dirty. Pt able to follow commands for ADL and mobility needs. M7 OT- IP Mobility and Balance Start: 08/15/24 14:27 Freq: Status: Active Protocol: Document 08/19/24 16:00 [facility] (Rec: 08/19/24 16:08 [facility] [id number]) OT- Bed Mobility Assessment Supine to Sit Supine to Sit Assist Standby Assistance Sit to Supine Sit to Supine Assist Standby Assistance OT-Transfer Assessment Sit to and From Stand Sit to and from Stand Standby Assistance,Minimal Assistance Comments Mobility Comments Pending on height of surfaces at times needing CHRISTIANO to stand otherwise SBA with high bed and use of grab bars. Once on his feet SBA with FWW. Pt on RA and O2 on RA and at 95% at times his HR increased from 108-133, nursing aware. OT- Balance Assessment Sitting Balance and Reactions Static Sitting Balance Ability Normal Dynamic Sitting Balance Ability Good Standing Balance and Reactions Static Standing Balance Ability Fair Dynamic Standing Balance Ability Fair M8 OT- IP Objective Assessments Start: 08/15/24 14:27 Freq: Status: Active Protocol: Document 08/15/24 14:27 [facility] (Rec: 08/15/24 14:43 [facility] [id number]) OT Gross Range of Motion Upper Extremity Range of Motion Assessment Within Functional Limits OT Strength Upper Extremity Strength Assessment Within Functional Limits Hand Liberal Arts Dean Strength Hand Dominance Right OT- Coordination Assessment Upper Extremity Finger to Nose Test Within Functional Limits M9 OT- IP Assessment and Plan Start: 08/15/24 14:27 Freq: Status: Active Protocol: Document 08/19/24 16:00 [facility] (Rec: 08/19/24 16:08 [facility] [id number]) OT Summary Assessment and Plan Potential Rehabilitation Potential Good Analytic Complexity at Evaluation Moderate Summary OT Impairments Balance,Functional Mobility, Grooming,Dressing,Toileting, Bathing,Toilet Transfers, Shower Transfers Progress Towards Goals Progressing Toward Goals Assessment Summary Pt will continue to benefit from assist for his wounds at home if going home. Pt is insistent on going home at this time. Pt needing assist to stand from lower surfaces and would benefit from SNF versus home with assist and home health. Goals Dressing Goal Independent Toileting Goal Independent Bathing Goal Independent Toilet Transfer Goal Independent Shower Transfer Goal Independent Days to Meet Goals 9 Frequency of Treatment Other frequency 5x/week Treatment Plan OT Treatment Plan ADL Training,Functional Mobility,Patient/Family Education,Discharge Planning Discharge Recommendations OT Discharge Recommendations SNF Rehab,Home vs SNF Other Discharge Recommendations Pending assist, possibly home with assist and home health Home Equipment Needs WC,BSC,FWW Transportation Needs at Discharge Private Vehicle,Wheelchair/ Cabulance
[2024-08-19 19:55] VITALS: PULSE 102; O2SAT 94
[2024-08-19] MEDS: HYDROCODONE/ACET 5/325 TABLET 2 TAB PO (19:59)
[2024-08-19 20:00] VITALS: BP 135/101; PULSE 120; RESP 20; TEMP 36.5; O2SAT 99
[2024-08-19 21:00] VITALS: BP 105/76; PULSE 105
[2024-08-20] MEDS: CIPROFLOXACIN 250 MG TABLET 750 MG PO ×2 (06:05→20:04)
[2024-08-20 06:20] LABS: Add Manual Diff / Slide Review NO; Basophils Absolute Auto 100 /uL (0-100); Eosinophils Absolute Auto 200 /uL (0-450); Eosinophils Percent Auto 2.7 % (2-4); Hematocrit 40.4 % (41-53); Hemoglobin 13.1 g/dL (13.5-17.5); Lymphocytes Absolute Auto 600 /uL (1100-4500); Lymphocytes Percent Auto 9.6 % (25-40); Mean Corpuscular HGB Conc 32.3 % (30-36); Mean Corpuscular Hemoglobin 28.2 PG (26-34); Mean Corpuscular Volume 87.3 fL (80-100); Monocytes Absolute Auto 700 /uL (0-900); Monocytes Percent Auto 11.1 % (3-14); Neutrophils Absolute Auto 4900 /uL (1500-7000); Neutrophils Percent Auto 75.6 % (50-75); Platelet Count 169 X10^3/uL (150-400); Red Blood Cell Count 4.63 X10^6/uL (4.5-5.9); Red Cell Distribution Width 15.6 % (11.6-14.8); White Blood Cell Count 6.5 X10^3/uL (4.5-11.0)
[2024-08-20 06:40] LABS: BUN Creatinine Ratio 22.7 (6-22); Blood Urea Nitrogen 22 mg/dL (9-20); Calcium 8.7 mg/dL (8.4-10.2); Carbon Dioxide 30 mmol/L (22-32); Chloride 103 mmol/L (98-107); Estimated Glomerular Filt Rate > 60 mL/min (>60); Glucose 87 mg/dL (80-110); HEMOLYSIS < 15 (0-50); Magnesium 1.7 mg/dL (1.6-2.3); Potassium 4.2 mmol/L (3.4-5.1); Sodium 138 mmol/L (137-145)
[2024-08-20 08:00] VITALS: BP 133/85; PULSE 73; RESP 18; TEMP 35.9; O2SAT 98
--- NOTE | 2024-08-20 08:13 | P.PN_ITS ---
Subjective Subjective Interval history: Summary: Patient was admitted with bilateral leg wounds and cellulitis. Echo reveals EF of 10-15%. He declined halfway facility. Subjective: He was lethargic and weak. He does agree to halfway facility for ongoing wound care which is relatively high level and complex. He also has ongoing diuresis and management of edema related to his severe systolic heart failure. Exam Vital Signs (past 8 hours): Fraction of Inspired Oxygen 24 SaO2/FiO2 Ratio 391 Oxygen Delivery Method Nasal Cannula Oxygen Flow Rate 1 Narrative Exam Narrative: NAD, alert and oriented. Fluent speech. Lungs are clear, normal rate and effort. Heart is regular, no murmur gallop or rub. Abdomen is soft, non distended. Extremities are swollen and wrapped. Toes are dusky. Objective Labs 08/20/24 05:16 08/20/24 05:16 Labs: Laboratory Results - last 24 hr 08/20/24 05:16 WBC 6.5 RBC 4.63 Hgb 13.1 L Hct 40.4 L MCV 87.3 MCH 28.2 MCHC 32.3 RDW 15.6 H Plt Count 169 Neut % (Auto) 75.6 H Lymph % (Auto) 9.6 L [place] % (Auto) 11.1 Eos % (Auto) 2.7 Baso % (Auto) 1.0 Neut # (Auto) 4900 Lymph # (Auto) 600 L [place] # (Auto) 700 Eos # (Auto) 200 Baso # (Auto) 100 Sodium 138 Potassium 4.2 Chloride 103 Carbon Dioxide 30 BUN 22 H Creatinine 0.97 Estimated GFR > 60 BUN/Creatinine Ratio 22.7 H Glucose 87 Calcium 8.7 Magnesium 1.7 PFSH Social History household members: none Smoking Status: Former smoker alcohol intake: current Assessment & Plan Assessment & Plan narrative: 1. Bilateral leg cellulitis, 3 species on culture 2. Bilateral LE edema 3. Severe Cardiomyopathy, acute (presumably on chronic) systolic heart failure. 4. Atrial fibrillation 5. Pleural Effusion 6. Severe Cardiomyopathy/Atrial fibrillation/Pleural Effusion with acute respiratory failure with hypoxia -EF 15-20% on Echo, he states he has had problems with his heart before, but unknown if any prior echos. -Afib on EKG Plan: - PO Cipro - All organisms are sensitive --wound culture with Aeromonas species, Raoultella Planticola and Proteus penneri. All 3 are sensitive to cefepime and Cipro. -leg arterial and venous studies. Venous was negative for DVT. Arterial studies without any peripheral stenosis. -ambulate with therapies, recommend for SNF at this time, ordered wound care consultation for recommendations on dressings needed for ambulation. -continue pain control as needed. -MRSA swab negative, no vancomycin needed. -continue diuresis -anticipate discharge to halfway facility for ongoing treatment of leg wounds and systolic heart failure. STEPHANIE is August 21. Time-Based Coding :: [TOTAL MINUTES] spent with patient and on the chart (including review of chart, obtaining history, exam, reviewing outside data, placing orders, documenting exam and treatment plan, and counseling patient) on [DATE].
[2024-08-20] MEDS: HEPARIN 5,000 UNIT/ML VIAL 5000 UNIT SUBCUT ×2 (08:46→20:04)
[2024-08-20] MEDS: GABAPENTIN 100 MG CAPSULE PO ×2 (08:46→20:04)
[2024-08-20 08:47] VITALS: BP 133/85; PULSE 73
[2024-08-20] MEDS: FUROSEMIDE 20 MG/2 ML VIAL IV (08:47)
[2024-08-20] MEDS: lisinopriL 5 MG TABLET PO (08:47)
[2024-08-20] MEDS: SODIUM CHLORIDE 0.9% FLUSH 10 ML IV ×2 (08:48→20:07)
--- NOTE | 2024-08-20 09:00 | PT.IPTN ---
Current Diagnoses Cellulitis of right lower limb (08/12/24) Cellulitis of left lower limb (08/12/24) Non-pressure chronic ulcer of other part of right foot with fat layer exposed (08/12/24) Non-pressure chronic ulcer of other part of left foot with fat layer exposed (08/12/24) Non-pressure chronic ulcer of other part of right lower leg with fat layer exposed (08/12/24) Non-pressure chronic ulcer of other part of left lower leg with fat layer exposed (08/12/24) Localized edema (08/12/24) Physical Therapy Treatment Note M2 PT-IP Current Condition Start: 08/14/24 08:04 Freq: NEEDED Status: Active Protocol: Document 08/14/24 09:13 MB (Rec: 08/14/24 11:03 MB [id number]) Physical Therapy Current Condition Current Condition Evaluation Date 08/14/24 Treatment Diagnosis B LE cellulitis M3 PT-IP Subjective Start: 08/14/24 08:04 Freq: NEEDED Status: Active Protocol: Document 08/20/24 09:32 TS (Rec: 08/20/24 09:37 TS [id number]) Subjective Physical Therapy Visit Type Type Treatment Note Visit Start Time 09:00 Visit Stop Time 09:28 Number of CLINICAL INSTRUCTOR Visits 1 Physical Therapy Visit Comments Patient Comments Pt found resting in bed, he is agreeable to PT. Therapy Pain Assessment Pain When Pain Assessed At Rest Pain Present Pain Present Pain Reported M4 PT-IP Mobility and Gait Start: 08/14/24 08:04 Freq: NEEDED Status: Active Protocol: Document 08/20/24 09:32 TS (Rec: 08/20/24 09:37 TS [id number]) PT-Bed Mobility Assessment Supine to Sit Supine to Sit Standby Assistance,1 Person Assistance,Head of Bed Elevated,Bedrails Sit to Supine Sit to Supine Standby Assistance,1 Person Assistance,Head of Bed Elevated,Bedrails Scooting Scooting to Edge of Bed Standby Assistance PT-Transfer Assessment Sit to and From Stand Sit to and from Stand Standby Assistance Equipment Transfer Assistive Device Gait Belt,Front Wheeled Walker Orthotic/Prosthetic Devices or Brace: No Comments Mobility Comments Supine to sit SBA with HOB elevated. STS from bed with bed raised SBA with FWW. Pt ambulates ~30' in the room SBA with step to gait. Pt requests to use restroom. STS SBA from toilet. He ambulates back ot the bed. Sit to supine into bed SBA. Pt was left in bed, all needs met. Gait Assessment Gait Gait Assistance Required: Standby Assistance Distance (Feet) 30 Able to Maintain Weight Bearing Status Yes During Gait Assistive Devices Assistive Device Gait Belt,Front Wheeled Walker Orthotic/Prosthetic Devices or Brace: No Gait Deviations General Gait Pattern Antalgic,Decreased Stride Length,Decreased Feet Clearance Factors Limiting Gait Function Factors Limiting Gait Function Decreased Activity Tolerance, Decreased Strength,Limited Range of Motion,Pain,Poor Balance,Poor Safety Awareness PT-Balance Assessment Sitting Balance and Reactions Static Sitting Balance Ability Normal Dynamic Sitting Balance Ability Good Standing Balance and Reactions Static Standing Balance Ability Fair Dynamic Standing Balance Ability Fair Device Used FWW M5 PT-IP Objective Assessments Start: 08/14/24 08:04 Freq: NEEDED Status: Active Protocol: Document 08/14/24 09:13 MB (Rec: 08/14/24 11:03 MB [id number]) Orientation Orientation/Cognition Level of Alertness Alert Orientation Name,Age,Birthday,Month,Year, Day of Week,Place,Situation Language Function Ability No Deficits Noted Safety Awareness Decreased Safety Awareness Comments Pt answers most questions but does not relay what is concerning him about home Gross Range of Motion Upper Extremity ROM Assessment Within Functional Limits Lower Extremity ROM Assessment Bilaterally Impaired Strength Comments Strength Comments No formal ROM or MMT LEs given skin issues/cellulitis, bleeding today Coordination Assessment Gross Coordination Gross Coordination Impaired Assessment Coordination Comments Moves legs together and in gross movements d/t pain, edema, and skin breakdown Sensation Assessment Comments Sensation Comments NT M6 PT-IP Treatment Start: 08/14/24 08:04 Freq: NEEDED Status: Active Protocol: Document 08/20/24 09:32 TS (Rec: 08/20/24 09:37 TS [id number]) Physical Therapy Treatment Education Education Provided Safety M7 PT-IP Assessment and Plan Start: 08/14/24 08:04 Freq: NEEDED Status: Active Protocol: Document 08/20/24 09:32 TS (Rec: 08/20/24 09:37 TS [id number]) PT Summary Assessment and Plan Potential Rehabilitation Potential Fair Summary Impairments Pain,ROM,Strength,Balance, Coordination,Sensation,Tone, Cognition,Bed Mobility, Transfers,Gait,Activity Tolerance Progress Towards Goals Progressing Toward Goals Assessment Summary Pt continues to SBA for all mobility. He ambulates with use of fWW ~30' in the room. Pt reports increasing pain when up on feet. PT is recommending home with assist adn HHPT. Goals Bed Mobility Goal Independent Transfer Goal Standby Assistance,Front Wheeled Walker Gait Goal Standby Assistance,Front Wheel Walker Gait Distance 100 Other Goals up/down 1 step using FWW Days to Meet Goals 10 Frequency of Treatment Frequency Of Treatment Once a Day Treatment Plan Physical Therapy Treatment Plan Bed Mobility Training,Transfer Training,Gait Training, Therapeutic Exercise,Balance Retraining,Discharge Planning, Hot or Cold Pack,Neuromuscular Re-ed,Coordination Retraining ,Manual Therapy Recommendations To Nursing Amount of Assist Needed Standby Assistance Discharge Recommendations PT Discharge Recommendations Home with Assistance,Home Health Equipment Needed for Home Before FWW Discharge Transportation Needs at Discharge Private Vehicle
[2024-08-20 09:01] VITALS: O2SAT 94
[2024-08-20] MEDS: MAGNESIUM CHLORIDE 64 MG TABLET 128 MG PO (09:34)
[2024-08-20] MEDS: HYDROCODONE/ACET 5/325 TABLET 2 TAB PO (09:36)
--- NOTE | 2024-08-20 14:00 | CM.DPC ---
DCP Cont. Reviewed EMR and team rounds for status updates. Pt is now open to SNF rehab at d/c. This COMMERCIAL SALES DIRECTOR sent a referral to [facility] to review. They called back and stated that they could take him tomorrow 08/21, but that he would need to agree to not leave AMA. COMMERCIAL SALES DIRECTOR will have that discussion with him and contact [facility] in the am to confirm d/c.
--- NOTE | 2024-08-20 14:10 | OT.IP.TRT ---
Current Diagnoses Cellulitis of right lower limb (08/12/24) Cellulitis of left lower limb (08/12/24) Non-pressure chronic ulcer of other part of right foot with fat layer exposed (08/12/24) Non-pressure chronic ulcer of other part of left foot with fat layer exposed (08/12/24) Non-pressure chronic ulcer of other part of right lower leg with fat layer exposed (08/12/24) Non-pressure chronic ulcer of other part of left lower leg with fat layer exposed (08/12/24) Localized edema (08/12/24) Occupational Therapy Treatment Note M2 OT-IP Current Condition Start: 08/15/24 14:27 Freq: Status: Active Protocol: Document 08/15/24 14:27 [facility] (Rec: 08/15/24 14:43 [facility] [id number]) Occupational Therapy Current Condition Current Condition Evaluation Date 08/08/24 Treatment Diagnosis Cellulitis BLE Diagnosis Onset Date 08/12/24 M3 OT- IP Subjective and Pain Start: 08/15/24 14:27 Freq: Status: Active Protocol: Document 08/20/24 14:30 [facility] (Rec: 08/20/24 14:35 [facility] [id number]) OT- Subjective Occupational Therapy Visit Type Type Treatment Note Visit Start Time 14:10 Visit Stop Time 14:30 Occupational Therapy Visit Comments Patient Comments Nursing about to change pt's leg dressings out. Patient/Caregiver Goals TO go home. OT Pain Assessment Pain When Pain Assessed During Mobility Pain Present Pain Present Pain Reported Location bilateral feet Pain Behaviors Facial Grimacing M5 OT- IP IADL's Start: 08/15/24 14:27 Freq: Status: Active Protocol: Document 08/15/24 14:27 [facility] (Rec: 08/15/24 14:43 [facility] [id number]) OT-Instrumental Activities of Daily Living Home Safety Awareness Home Safety Comments Pt insists that he is able to care for himself. Medication Management Medication Management Comments Pt would benefit from assist due to questionable judgement. M6 OT- IP Functional Cognition Start: 08/15/24 14:27 Freq: Status: Active Protocol: Document 08/19/24 16:00 [facility] (Rec: 08/19/24 16:08 [facility] [id number]) Cognitive Factors Limiting Selfcare Function Cognitive Comments Cognitive Assessment Comments Pt needing reminders not to touch his legs with his hands as nail still dirty. Pt able to follow commands for ADL and mobility needs. M7 OT- IP Mobility and Balance Start: 08/15/24 14:27 Freq: Status: Active Protocol: Document 08/20/24 14:30 [facility] (Rec: 08/20/24 14:35 [facility] [id number]) OT-Transfer Assessment Comments Mobility Comments While supine pt able to hold his leg up and in extension so nursing able to wash and change out his dressing. At times pt needing CGA to MODA to help keep his leg up. M8 OT- IP Objective Assessments Start: 08/15/24 14:27 Freq: Status: Active Protocol: Document 08/15/24 14:27 [facility] (Rec: 08/15/24 14:43 [facility] [id number]) OT Gross Range of Motion Upper Extremity Range of Motion Assessment Within Functional Limits OT Strength Upper Extremity Strength Assessment Within Functional Limits Hand Barrel Painter Strength Hand Dominance Right OT- Coordination Assessment Upper Extremity Finger to Nose Test Within Functional Limits M9 OT- IP Assessment and Plan Start: 08/15/24 14:27 Freq: Status: Active Protocol: Document 08/20/24 14:30 [facility] (Rec: 08/20/24 14:35 [facility] [id number]) OT Summary Assessment and Plan Potential Rehabilitation Potential Good Analytic Complexity at Evaluation Moderate Summary OT Impairments Balance,Functional Mobility, Grooming,Dressing,Toileting, Bathing,Toilet Transfers, Shower Transfers Progress Towards Goals Progressing Toward Goals Assessment Summary Pt will continue to benefit from assist with his wounds at home. Pt insists that he will be fine at home. Pt encouraged to work on leg strengthening while in bed. Pt SNF versus home with assist and home health. Goals Dressing Goal Independent Toileting Goal Independent Bathing Goal Independent Toilet Transfer Goal Independent Shower Transfer Goal Independent Days to Meet Goals 8 Frequency of Treatment Other frequency 5x/week Treatment Plan OT Treatment Plan ADL Training,Functional Mobility,Patient/Family Education,Discharge Planning Discharge Recommendations OT Discharge Recommendations SNF Rehab,Home vs SNF Home Equipment Needs WC,BSC,FWW Transportation Needs at Discharge Private Vehicle,Wheelchair/ Cabulance
[2024-08-20] MEDS: CALCIUM CARBONATE 500 MG TAB 1000 MG PO (15:54)
[2024-08-20 16:00] VITALS: BP 127/84; PULSE 99; RESP 18; TEMP 36.3; O2SAT 98
[2024-08-20 19:34] VITALS: O2SAT 98
[2024-08-20 20:34] VITALS: BP 137/100; PULSE 100; RESP 19; TEMP 35.9; O2SAT 100
[2024-08-21 00:13] VITALS: BP 156/106; PULSE 106; RESP 19; TEMP 36.7; O2SAT 93
[2024-08-21 05:37] LABS: Add Manual Diff / Slide Review NO; Basophils Absolute Auto 0 /uL (0-100); Basophils Percent Auto 0.5 % (0-2); Eosinophils Absolute Auto 100 /uL (0-450); Eosinophils Percent Auto 1.8 % (2-4); Hematocrit 42.6 % (41-53); Hemoglobin 13.7 g/dL (13.5-17.5); Lymphocytes Absolute Auto 500 /uL (1100-4500); Lymphocytes Percent Auto 6.3 % (25-40); Mean Corpuscular HGB Conc 32.1 % (30-36); Mean Corpuscular Volume 87.4 fL (80-100); Monocytes Absolute Auto 700 /uL (0-900); Monocytes Percent Auto 9.6 % (3-14); Neutrophils Absolute Auto 6400 /uL (1500-7000); Neutrophils Percent Auto 81.8 % (50-75); Platelet Count 171 X10^3/uL (150-400); Red Blood Cell Count 4.87 X10^6/uL (4.5-5.9); Red Cell Distribution Width 15.1 % (11.6-14.8); White Blood Cell Count 7.8 X10^3/uL (4.5-11.0)
[2024-08-21 05:50] LABS: BUN Creatinine Ratio 29.9 (6-22); Blood Urea Nitrogen 26 mg/dL (9-20); Carbon Dioxide 30 mmol/L (22-32); Chloride 101 mmol/L (98-107); Estimated Glomerular Filt Rate > 60 mL/min (>60); Glucose 117 mg/dL (80-110); HEMOLYSIS 22 (0-50); Magnesium 1.8 mg/dL (1.6-2.3); Potassium 4.3 mmol/L (3.4-5.1); Sodium 137 mmol/L (137-145)
[2024-08-21] MEDS: CIPROFLOXACIN 250 MG TABLET 750 MG PO (06:04)
[2024-08-21] MEDS: SIMETHICONE 80 MG TABLET PO ×2 (06:04→12:06)
[2024-08-21 08:00] VITALS: BP 149/108; PULSE 105; RESP 20; TEMP 36.2; O2SAT 98
[2024-08-21 09:06] VITALS: BP 131/82; PULSE 101
[2024-08-21] MEDS: GABAPENTIN 100 MG CAPSULE PO (09:06)
[2024-08-21] MEDS: lisinopriL 5 MG TABLET PO (09:06)
[2024-08-21] MEDS: HEPARIN 5,000 UNIT/ML VIAL 5000 UNIT SUBCUT (09:09)
[2024-08-21] MEDS: SODIUM CHLORIDE 0.9% FLUSH 10 ML IV (09:12)
--- NOTE | 2024-08-21 11:16 | P.DS_ITS ---
History of Present Illness History of Present Illness Chief complaint: wounds on both feet Narrative: The patient was a 74-year-old male who denies a past medical history. He lives in [facility] and presents with 2 weeks of progressive redness and wounds in his lower legs. He has been soaking in his wounds 3 times a day and Epsom salts and organic laundry detergent. He was also tried a topical pain cream as well. He was seen in clinic today in [facility] and referred to the ED. Denies fevers, or chills, no nausea, or vomiting. He was no history of cellulitis, denies a history of MRSA. He was lived alone for 35 years, has 7 children. He notes that his hygiene is not what it could be. He does have his own place on [address]. He has been treating his own theories of cellulitis, gout, and foot fungus. He was no history of gout. He has been trying his remedies of salt soaking and laundry detergent for the last 2 weeks and ultimately decided to come for additional help. He denies a history of smoking, or drug use. He does use marijuana very occasionally. He denies any new traumas to the feet or cold or heat exposures. He was a protuberant abdomen and states that this is fairly normal for him. There is a question of some difficulty with urination but no clear history of urinary retention. He does not typically see doctors, or take any medications. Discharge Providers Provider Date of admission: 08/12/24 17:32 Discharge Date: 08/21/24 Primary care physician: Maribell Duran PA-C Consults: 08/13/24 14:16 Consult to Physical Therapy Evaluate & Treat Comment: Physician Instructions: Evaluate and Treat 08/14/24 10:26 Consult to Wound Care Routine Comment: Consulting Provider: Beth- Wound Care 08/15/24 13:57 Consult to Occupational Therapy Evaluate & Treat Comment: Physician Instructions: Evaluate and treat Discharge provider: Herrera Murphy MD Summary Hospital Course Discharge Diagnosis: 1. Bilateral leg cellulitis, 3 species on culture. Present on admission and improving. 2. Bilateral LE edema, present on admission and improving. 3. Atrial fibrillation 4. Pleural Effusion 5. Severe Cardiomyopathy/Atrial fibrillation/Pleural Effusion with acute respiratory failure with hypoxia -EF 15-20% on Echo, he states he has had problems with his heart before, but unknown if any prior echos. Hospital Course: The patient was admitted and treated for cellulitis and his leg wounds were treated with wound care. He would elevation and diuresis for edema related to his severe cardiomyopathy. The patient was initially hypoxemic but this improved and he weaned off from oxygen. The patient lives on [facility], alone. He was somewhat resistant at x2 his medications but overall has go along with the game plan of diuresis and wound care. At the time of discharge she was stable for discharge with ongoing medical therapy for his heart as well as oral antibiotics for another week for his legs. He will need ongoing wound care measures. When he is closer to discharge home we will also arrange outpatient cardiology follow up. Status at Discharge Cognitive/behavioral status at discharge: oriented Functional status at discharge: uses cane/walker Overall status at discharge: patient is progressing back to baseline Time Spent with Patient Time spent: Greater than 30 minutes Exam Vital Signs (past 8 hours): - 08/21/24 08:00 08/21/24 09:06 Temperature 97.1 F L Pulse Rate 105 H 101 H Respiratory Rate 20 Blood Pressure 149/108 H 131/82 Pulse Oximetry 98 Fraction of Inspired Oxygen 24 SaO2/FiO2 Ratio 408 Oxygen Delivery Method Nasal Cannula Oxygen Flow Rate 0 Narrative Exam Narrative: NAD, alert and oriented. Fluent speech. Lungs are clear, normal rate and effort. Heart is regular, no murmur gallop or rub. Abdomen is soft, non distended. Extremities are swollen and wrapped. Toes are dusky. Objective ECG Impression: Atrial fibrillation with rapid ventricular response Low voltage QRS Left anterior fascicular block Cannot rule out Anterior infarct , age undetermined Imaging Multiple studies:: Radiologist's impression: Chest x-ray: Trace bilateral effusions, likely decreased allowing for differences in modality. Limited single view radiograph with low lung volumes. Cardiomegaly. Chest CTA: Aortic atherosclerosis without evidence of dissection or other injury. Bilateral pleural effusions. Echo: 1. The left ventricular contractility is severely compromised. Estimate ejection fraction is approximately 15 to 20% with severe global hypokinesis. Mild concentric LVH. Unable to comment on diastolic function. 2. The right ventricular contractility is moderately compromised. 3. Four-chamber cardiac enlargement noted. 4. Moderate to severe mitral regurgitation. 5. Moderate to severe tricuspid regurgitation with estimated pulmonary systolic artery pressures of 38 mmHg. 6. Mild aortic insufficiency with moderate sclerosis but no significant stenosis. 7. No obvious intracardiac shunts. 8. No obvious intracardiac masses nor thrombi. 9. Trace, nonhemodynamically significant pericardial effusion present. 10. Elevated right-sided filling pressures. 11. Aortic root is dilated. Linear density was present in the aortic root as well as the ascending aorta. With the presence of a dilated aortic root, dissection cannot be excluded on this echocardiogram. Conclusion: Severe left ventricular systolic dysfunction with four-chamber cardiac enlargement. Moderate to severe valvular insufficiencies. Dilated aortic root with possible aortic dissection. Duplex arterial legs: 1. Decreased peak systolic velocities are seen in the bilateral femoral and popliteal arteries, which may be related to cardiac disease. 2. Elevated peak systolic velocity within the left tibial arteries, consistent with 1-19% stenosis. Duplex venous legs: Bilateral diffuse nonspecific subcutaneous edema. No ultrasound evidence of of deep venous thrombosis in the bilateral lower extremities. Labs 08/21/24 05:17 08/21/24 05:17 Labs: Laboratory Results - last 24 hr 08/21/24 05:17 WBC 7.8 RBC 4.87 Hgb 13.7 Hct 42.6 MCV 87.4 MCH 28.0 MCHC 32.1 RDW 15.1 H Plt Count 171 Neut % (Auto) 81.8 H Lymph % (Auto) 6.3 L [place] % (Auto) 9.6 Eos % (Auto) 1.8 L Baso % (Auto) 0.5 Neut # (Auto) 6400 Lymph # (Auto) 500 L [place] # (Auto) 700 Eos # (Auto) 100 Baso # (Auto) 0 Sodium 137 Potassium 4.3 Chloride 101 Carbon Dioxide 30 BUN 26 H Creatinine 0.87 Estimated GFR > 60 BUN/Creatinine Ratio 29.9 H Glucose 117 H Calcium 9.0 Magnesium 1.8 PFSH Social History household members: none Smoking Status: Former smoker alcohol intake: current Discharge Assessment & Plan Assessment and Plan Assessment: 1. Bilateral leg cellulitis, 3 species on culture. Present on admission and improving. 2. Bilateral LE edema, present on admission and improving. 3. Atrial fibrillation 4. Pleural Effusion 5. Severe Cardiomyopathy/Atrial fibrillation/Pleural Effusion with acute respiratory failure with hypoxia -EF 15-20% on Echo, he states he has had problems with his heart before, but unknown if any prior echos. Plan of Treatment: Stable for discharge to group home facility for ongoing rehabilitative efforts, wound care, and medical therapy for his dilated cardiomyopathy. Discharge Plan Discharge Plan Patient Disposition: SNF Transfer to: [facility] and [facility] Under care of provider: Dr Elena. Provider Discharge Comment: Stable for discharge for ongoing rehabilitative efforts and management of leg wounds. Discharge orders & Medications Prescriptions: New hydrocodone-acetaminophen 5-325 mg Tablet 2 tab PO Q4H PRN (Reason: Pain, Severe (7-10)) Qty: 15 0RF ciprofloxacin HCl 250 mg Tablet 750 mg PO 0700,2100 Qty: 14 0RF lisinopril 5 mg Tablet 5 mg PO DAILY Qty: 30 0RF gabapentin 100 mg Capsule 100 mg PO BID Qty: 60 0RF simethicone [Gas Relief 80 (simethicone)] 80 mg Tablet,Chewable 80 mg PO QID PRN (Reason: Flatulence) Qty: 30 0RF carvedilol [Coreg] 3.125 mg tablet 3.125 mg PO BID Qty: 60 0RF Rx Instructions: must administer with a meal/food furosemide [Lasix] 40 mg tablet 40 mg PO DAILY Qty: 30 0RF No Action No Known Home Medications Follow up/Referrals: Maribell Duran PA-C [Primary Care Provider] - Discharge Health Status Multidrug resistant organism: No MDRO Diet/Activity/Treatments Diet: Low-sodium Special Rehabilitation Services Reason for rehabilitation: Recovery r/t decondition Rehab type: Physical therapy and Occupational therapy Visit Report/Discharge Packet Stand Alone Forms: Patient Portal/API Discharge Data Primary Care Provider: Maribell Duran
--- NOTE | 2024-08-21 12:12 | CM.DPNOTE ---
DC Note Patient has been discharged to [facility] today, facility van has been arranged for fruit or nut picker between 1-2pm. Updated bedside RN. Patient undated and remains agreeable to plan. Emailed signed med list, Rx and PASRR to Brandi at [facility]. Plan: Discharge to [facility] via facility van. ABRAM
--- NOTE | 2024-08-21 12:57 | PC.NURSE ---
Patient A&OX4, VSS, afebrile. Initially BP elevated yet upon recheck 130/82. He is slightly tachycardic at 102 bpm. He is able to ambulate to BR with FWW to SBA. He has a large BM this a.m. but complains of bloating, and consistently belching. He is given Simethicone PRN. He is cleared for D/C to SNF today and CM arranged for transport between 1-2 pm. Report called to Gris at [facility]. BLE dressings C/D/I, he reports pain tolerable 2/10, declines wanting to eat lunch today due to bloating. He verbalizes understanding of discharge plan and is agreeable to transport this afternoon.
== END 2024-08-21 13:45 | DRG 602 ==
LOC: ED 16:06 → AC 17:33
PROVIDERS: Family Medicine; Internal Medicine; Admitting Provider Hospitalist; Emergency Provider Emergency Medicine; PCP Physician Assistant; Referring Provider Emergency Medicine; Visit Provider Hospitalist
DX: L03.115 Cellulitis of right lower limb (principal); I50.23 Acute on chronic systolic (congestive) heart failure; J96.01 Acute respiratory failure with hypoxia; L97.822 Non-pressure chronic ulcer of other part of left lower leg with fat layer exposed; L97.812 Non-pressure chronic ulcer of other part of right lower leg with fat layer exposed; I42.9 Cardiomyopathy, unspecified; L03.116 Cellulitis of left lower limb; L97.522 Non-pressure chronic ulcer of other part of left foot with fat layer exposed; L97.512 Non-pressure chronic ulcer of other part of right foot with fat layer exposed; R60.0 Localized edema; I48.91 Unspecified atrial fibrillation; B96.4 Proteus (mirabilis) (morganii) as the cause of diseases classified elsewhere; B96.89 Other specified bacterial agents as the cause of diseases classified elsewhere; Z53.29 Procedure and treatment not carried out because of patient's decision for other reasons; Z87.891 Personal history of nicotine dependence
CPT/HCPCS: 36415; 71045; 71275; 80048; 80053; 83735; 84443; 85025; 85651; 86140; 87040; 87070; 87077; 87147; 87186; 87205; 87797; 93005; 93306; 93925; 93970; 94760; 96365; 97116; 97129; 97130; 97161; 97166; 97530; 97535; 99233; 99283; 99284; J0696; J1644; J1940; Q9967

== ENCOUNTER → 2024-10-01 12:14 | Outpatient (CLI) | payer SELFPAY ==
[2024-08-12 18:46] VITALS: BMI 36.6
[2024-10-01 18:53] LABS: Add Manual Diff / Slide Review NO; Basophils Absolute Auto 0 /uL (0-100); Basophils Percent Auto 0.3 % (0-2); Eosinophils Absolute Auto 100 /uL (0-450); Eosinophils Percent Auto 0.5 % (2-4); Hematocrit 46.3 % (41-53); Hemoglobin 14.9 g/dL (13.5-17.5); Lymphocytes Absolute Auto 400 /uL (1100-4500); Lymphocytes Percent Auto 3.6 % (25-40); Mean Corpuscular HGB Conc 32.2 % (30-36); Mean Corpuscular Hemoglobin 28.4 PG (26-34); Mean Corpuscular Volume 88.1 fL (80-100); Monocytes Absolute Auto 700 /uL (0-900); Monocytes Percent Auto 6.5 % (3-14); Neutrophils Absolute Auto 9700 /uL (1500-7000); Neutrophils Percent Auto 89.1 % (50-75); Platelet Count 167 X10^3/uL (150-400); Red Blood Cell Count 5.25 X10^6/uL (4.5-5.9); Red Cell Distribution Width 17.2 % (11.6-14.8); White Blood Cell Count 10.9 X10^3/uL (4.5-11.0)
[2024-10-01 19:07] LABS: Hemoglobin A1C% w Est Avg Glu 6.5 % (4.0-6.0)
[2024-10-01 19:08] LABS: Alanine Aminotransferase 73 IU/L (<50); Albumin 3.5 g/dL (3.5-5.0); Albumin Globulin Ratio 1.3 (1.0-2.8); Alkaline Phosphatase 74 U/L (38-126); Aspartate Aminotransferase 70 IU/L (17-59); BUN Creatinine Ratio 33.7 (6-22); Bilirubin Total 1.6 mg/dL (0.2-1.3); Blood Urea Nitrogen 55 mg/dL (9-20); Calcium 11.8 mg/dL (8.4-10.2); Carbon Dioxide 25 mmol/L (22-32); Chloride 98 mmol/L (98-107); Cholesterol 89 mg/dL (140-199); Estimated Glomerular Filt Rate 44 mL/min (>60); Globulin 2.8 g/dL (1.7-4.1); Glucose 97 mg/dL (80-110); HDL Cholesterol 21 mg/dL (40-60); HEMOLYSIS < 15 (0-50); LDL Cholesterol Calculated 54 mg/dL (<100); Potassium 4.7 mmol/L (3.4-5.1); Sodium 133 mmol/L (137-145); Total Protein 6.3 g/dL (6.3-8.2); Triglycerides 71 mg/dL (35-150)
[2024-10-01 19:46] LABS: TSH w/ Reflex to FT4 5.04 uIU/mL (0.47-4.68)
[2024-10-01 20:17] LABS: Free T4, Direct Thyroxine 1.72 ng/dL (0.78-2.19)
[2024-10-01 20:19] LABS: NT-proBNP (BNP-Adult 18+) 3910 pg/mL (<125)
== END ==
PROVIDERS: PCP Physician Assistant; Visit Provider Physician Assistant Medical
DX: S91.309A Unspecified open wound, unspecified foot, initial encounter (principal); Z12.5 Encounter for screening for malignant neoplasm of prostate; Z12.11 Encounter for screening for malignant neoplasm of colon; Z13.29 Encounter for screening for other suspected endocrine disorder; L03.90 Cellulitis, unspecified; R60.0 Localized edema; L97.522 Non-pressure chronic ulcer of other part of left foot with fat layer exposed; L97.512 Non-pressure chronic ulcer of other part of right foot with fat layer exposed; L97.822 Non-pressure chronic ulcer of other part of left lower leg with fat layer exposed; L97.812 Non-pressure chronic ulcer of other part of right lower leg with fat layer exposed; S81.801A Unspecified open wound, right lower leg, initial encounter; S81.802A Unspecified open wound, left lower leg, initial encounter; I42.9 Cardiomyopathy, unspecified; L08.9 Local infection of the skin and subcutaneous tissue, unspecified; Z91.89 Other specified personal risk factors, not elsewhere classified; I48.91 Unspecified atrial fibrillation
CPT/HCPCS: 80053; 80061; 83036; 83880; 84439; 84443; 85025; 87070; 87077; 87147; 87186; 87205; G0103

== ENCOUNTER → 2024-10-08 11:52 | Outpatient (CLI) | payer SELFPAY ==
[2024-08-12 18:46] VITALS: BMI 36.6
[2024-10-08 18:50] LABS: Alanine Aminotransferase 35 IU/L (<50); Albumin 3.5 g/dL (3.5-5.0); Albumin Globulin Ratio 1.2 (1.0-2.8); Alkaline Phosphatase 83 U/L (38-126); Aspartate Aminotransferase 40 IU/L (17-59); BUN Creatinine Ratio 43.2 (6-22); Bilirubin Total 1.7 mg/dL (0.2-1.3); Blood Urea Nitrogen 41 mg/dL (9-20); Calcium 9.5 mg/dL (8.4-10.2); Carbon Dioxide 27 mmol/L (22-32); Chloride 100 mmol/L (98-107); Estimated Glomerular Filt Rate > 60 mL/min (>60); Glucose 104 mg/dL (80-110); HEMOLYSIS 21 (0-50); Potassium 4.8 mmol/L (3.4-5.1); Sodium 137 mmol/L (137-145); Total Protein 6.5 g/dL (6.3-8.2)
[2024-10-08 18:52] LABS: Add Manual Diff / Slide Review NO; Basophils Absolute Auto 0 /uL (0-100); Basophils Percent Auto 0.3 % (0-2); Eosinophils Absolute Auto 0 /uL (0-450); Eosinophils Percent Auto 0.3 % (2-4); Hematocrit 45.6 % (41-53); Hemoglobin 14.5 g/dL (13.5-17.5); Lymphocytes Absolute Auto 300 /uL (1100-4500); Lymphocytes Percent Auto 2.2 % (25-40); Mean Corpuscular HGB Conc 31.7 % (30-36); Mean Corpuscular Hemoglobin 27.2 PG (26-34); Mean Corpuscular Volume 85.7 fL (80-100); Monocytes Absolute Auto 600 /uL (0-900); Monocytes Percent Auto 4.4 % (3-14); Neutrophils Absolute Auto 12100 /uL (1500-7000); Neutrophils Percent Auto 92.8 % (50-75); Platelet Count 134 X10^3/uL (150-400); Red Blood Cell Count 5.32 X10^6/uL (4.5-5.9); Red Cell Distribution Width 17.5 % (11.6-14.8)
[2024-10-08 19:13] LABS: Hemoglobin A1C% w Est Avg Glu 6.5 % (4.0-6.0)
== END ==
PROVIDERS: PCP Physician Assistant; Visit Provider Physician Assistant Medical
DX: L03.90 Cellulitis, unspecified (principal); R73.9 Hyperglycemia, unspecified; N19 Unspecified kidney failure; S91.309A Unspecified open wound, unspecified foot, initial encounter
CPT/HCPCS: 80053; 83036; 85025; 87070; 87075; 87077; 87147; 87186; 87205